=== PATIENT | male | born 1935 | race Caucasian/White ===

== ENCOUNTER 2016-09-01 | Outpatient (CLI) | payer MEDICARE, BC, OTHER | END 2016-09-01 05:04 | disposition critical access hospital (66) | CPT/HCPCS: A0425; A0427 ==

== ENCOUNTER 2016-09-01 05:14 | Emergency (ER) | payer MEDICARE, BC, OTHER ==
[2016-09-01] MEDS ORDERED: SODIUM CHLORIDE 0.9% 1,000 ML IV ONE (05:24)
[2016-09-01] MEDS ORDERED: IPRATROPIUM/ALBUTEROL 3 ML NEB INH STA (06:22)
[2016-09-01] MEDS ORDERED: IPRATROPIUM/ALBUTEROL 3 ML NEB INH ONE (07:01)
== END 2016-09-01 07:53 | disposition home or self-care (01) ==
DX: E86.0 Dehydration (principal); R42 Dizziness and giddiness; D72.829 Elevated white blood cell count, unspecified; R19.7 Diarrhea, unspecified; E11.9 Type 2 diabetes mellitus without complications; I10 Essential (primary) hypertension
CPT/HCPCS: 36415; 51701; 71020; 80053; 81001; 83690; 83735; 83880; 84100; 84443; 84484; 85025; 87275; 87276; 93005; 93010; 94640; 96360; 96361; 99284; J7620

== ENCOUNTER 2017-02-28 08:00 | Outpatient (CLI) | payer MEDICARE, BC, OTHER ==
[2017-02-28 14:09] LABS: CALCIUM 9.2 mg/dL (8.5-10.3); CREATININE 1.5 mg/dL (0.6-1.2); POTASSIUM 4.5 mmol/L (3.5-5.0)
== END 2017-02-28 08:01 | disposition home or self-care (01) ==
LOC: LAB.WCP 08:00
PROVIDERS: ATTEND Family Medicine
DX: F32.9 Major depressive disorder, single episode, unspecified (principal); I10 Essential (primary) hypertension
CPT/HCPCS: 36415; 80048

== ENCOUNTER 2017-03-05 11:54 | Outpatient (CLI) | payer MEDICARE, BC, OTHER ==
[2017-03-05 21:02] LABS: PSA FREE 0.398 ng/mL (0.16-2.81)
[2017-03-05 21:03] LABS: PSA TOTAL 2.448 ng/mL (0.000-2.000)
== END 2017-03-05 11:55 | disposition home or self-care (01) ==
LOC: LAB.WCP 11:54
PROVIDERS: ATTEND Family Medicine
DX: N40.1 Benign prostatic hyperplasia with lower urinary tract symptoms (principal)
CPT/HCPCS: 36415; 84154

== ENCOUNTER 2017-09-23 14:58 | Outpatient (CLI) | payer MEDICARE, BC, OTHER ==
--- NOTE | 2017-09-24 08:43 | MRI Report ---
EXAM: MRI CERVICAL SPINE WITHOUT CONTRAST EXAM DATE: 09/23/2017 03:36 PM. CLINICAL HISTORY: Cervical spine pain. History previously also of cervical spondylosis with myelopath y. COMPARISONS: MRI of the cervical spine 02/03/2016. TECHNIQUE: Multiplanar, multisequence T1-weighted and fluid-sensitive sequences of the cervical spine without contrast. Other: None. FINDINGS: Neurologic Structures: Stable appearance of the cervical spinal cord without evidence for developing focal cord edema or other intrinsic cervical cord lesion. Alignment: No change of alignment. Notable degenerative C7 on T1 anterolisthesis. Bone Marrow: No acute vertebral body collapse. Multilevel degenerative endplate signal changes are pr esent, progressive at C4-C5 and essentially stable at C5-C6 and to a lesser degree at C6-C7. Interspace Levels/Facets: C1-C2: No significant change, degenerative spondylosis as before, patent central canal. C2-C3: Stable prominent chronic degenerative changes. Broad-based bulge. No additional central stenos is. Foraminal stenosis is most severe on the left. C3-C4: Stable prominent chronic degenerative changes. Central stenosis as before from broad-based dis k bulge. Prominent foraminal stenosis, not significantly changed, right worse than left. C4-C5: Moderately prominent and potentially progressive degenerative disk disease now with type I deg enerative endplate signal changes. Degenerative central canal and foraminal stenosis otherwise appear s stable. Prominent broad-based disk bulge. Mild ventral cord flattening by disk, nonprogressive. C5-C6: Stable prominent chronic degenerative changes. Broad-based bulge, no additional central stenos is. Stable-appearing prominent bilateral foraminal stenosis. C6-C7: Stable degenerative changes. Foraminal stenosis is prominent bilaterally. No central stenosis or cord impingement. C7-T1: Stable degenerative changes including advanced facet arthropathy with degenerative spondylolis thesis. Stable prominent deformity and narrowing of the foramina, probably worse on the left than the right. No significant or progressive central stenosis. Musculature: Stable prominent diffuse posterior paraspinal muscle fatty atrophy. Other: No focal or acute prevertebral edema. IMPRESSION: 1. Degenerative endplate signal changes are now more evident at the C4-C5 level. 2. Advanced multilevel degenerative cervical spinal spondylosis otherwise appears stable, no evidence for progression of prominent stenosis involving multiple spinal zones at multiple levels. 3. No evidence for progressive cord impingement or developing cord signal abnormality. [facility] Referring Provider Line: [phone] SITE ID: [id number]
== END 2017-09-23 14:59 | disposition home or self-care (01) ==
LOC: DI 14:58
PROVIDERS: ATTEND Physical Medicine & Rehabilitation
DX: M54.2 Cervicalgia (principal); M47.9 Spondylosis, unspecified
CPT/HCPCS: 72141

== ENCOUNTER 2018-01-26 08:00 | Outpatient (CLI) | payer MEDICARE, BC, OTHER ==
[2018-01-26 12:53] LABS: BASOPHILS # (AUTO) 0.1 10^3/uL (0.0-0.1); BASOPHILS % (AUTO) 1.2 %; EOSINOPHILS # (AUTO) 0.2 10^3/uL (0.0-0.7); EOSINOPHILS % (AUTO) 3.5 %; HGB - HEMOGLOBIN 10.3 g/dL (14.0-18.0); LYMPHOCYTES # (AUTO) 1.1 10^3/uL (1.5-3.5); LYMPHOCYTES % (AUTO) 17.9 %; MEAN CORPUSCULAR HEMOGLOBIN 32.1 pg (27.0-31.0); MEAN CORPUSCULAR HGB CONC 34.5 g/dL (32.0-36.0); MEAN CORPUSCULAR VOLUME 92.9 fL (80.0-94.0); MEAN PLATELET VOLUME 8.6 fL (7.4-11.4); MONOCYTES # (AUTO) 0.7 10^3/uL (0.0-1.0); MONOCYTES % (AUTO) 10.6 %; NEUTROPHILS # (AUTO) 4.2 10^3/uL (1.5-6.6); NEUTROPHILS % (AUTO) 66.8 %; PLT - PLATELET COUNT 177 10^3/uL (130-450); RED BLOOD COUNT 3.22 10^6/uL (4.70-6.10); RED CELL DISTRIBUTION WIDTH 14.2 % (12.0-15.0); WHITE BLOOD COUNT 6.4 x10^3/uL (4.8-10.8)
[2018-01-26 12:57] LABS: ALBUMIN 3.7 g/dL (3.2-5.5); ALBUMIN/GLOBULIN RATIO 1.5 (1.0-2.2); ALKALINE PHOSPHATASE 80 IU/L (42-121); ALT ALANINE AMINOTRANSFERASE 13 IU/L (10-60); AST ASPARTATE AMINOTRANSFERASE 20 IU/L (10-42); BILIRUBIN,TOTAL 0.8 mg/dL (0.2-1.0); BUN - BLOOD UREA NITROGEN 33 mg/dL (6-20); CALCIUM 8.7 mg/dL (8.5-10.3); CARBON DIOXIDE - CO2 24 mmol/L (21-32); CHLORIDE 100 mmol/L (101-111); CHOL/HDL RATIO 2.2 (<5.0); CHOLESTEROL 125 mg/dL; CREATININE 1.8 mg/dL (0.6-1.2); GFR - MDRD 36 (>89); GLUCOSE 102 mg/dL (70-100); HDL CHOLESTEROL 56 mg/dL; LDL CHOLESTEROL,CALCULATED 41 mg/dL; LDL/HDL RATIO 0.7 (<3.6); SODIUM 132 mmol/L (135-145); TOTAL PROTEIN 6.1 g/dL (6.7-8.2); VLDL CHOLESTEROL 28 mg/dL
== END 2018-01-26 08:01 | disposition home or self-care (01) ==
LOC: LAB.WCP 08:00
PROVIDERS: ATTEND Family Medicine
DX: I11.0 Hypertensive heart disease with heart failure (principal); I50.9 Heart failure, unspecified; N28.9 Disorder of kidney and ureter, unspecified; E78.5 Hyperlipidemia, unspecified; R53.83 Other fatigue
CPT/HCPCS: 36415; 80053; 80061; 83721; 84443; 85025

== ENCOUNTER 2018-05-05 12:42 | Outpatient (CLI) | payer MEDICARE, BC, OTHER | END 2018-05-05 12:43 | disposition home or self-care (01) | LOC: DI 12:42 | PROVIDERS: ATTEND Family Medicine | DX: I35.0 Nonrheumatic aortic (valve) stenosis (principal); I11.0 Hypertensive heart disease with heart failure; I50.9 Heart failure, unspecified; N28.9 Disorder of kidney and ureter, unspecified | CPT/HCPCS: 93306 ==

== ENCOUNTER 2018-05-13 08:01 | Outpatient (CLI) | payer MEDICARE, BC, OTHER ==
[2018-05-13 13:50] LABS: CALCIUM 8.9 mg/dL (8.5-10.3); CREATININE 2.3 mg/dL (0.6-1.2)
== END 2018-05-13 08:02 | disposition home or self-care (01) ==
LOC: LAB.WCP 08:01
PROVIDERS: ATTEND Family Medicine
DX: N28.9 Disorder of kidney and ureter, unspecified (principal); I10 Essential (primary) hypertension
CPT/HCPCS: 36415; 80048

== ENCOUNTER 2018-08-14 08:00 | Outpatient (CLI) | payer MEDICARE, BC, OTHER ==
[2018-08-14 17:17] LABS: HGB - HEMOGLOBIN 10.5 g/dL (14.0-18.0); MEAN CORPUSCULAR HEMOGLOBIN 32.5 pg (27.0-31.0); MEAN CORPUSCULAR HGB CONC 33.3 g/dL (32.0-36.0); MEAN CORPUSCULAR VOLUME 97.6 fL (80.0-94.0); MEAN PLATELET VOLUME 8.8 fL (7.4-11.4); RED BLOOD COUNT 3.25 10^6/uL (4.70-6.10); RED CELL DISTRIBUTION WIDTH 13.4 % (12.0-15.0); WHITE BLOOD COUNT 8.8 x10^3/uL (4.8-10.8)
[2018-08-14 17:22] LABS: CALCIUM 8.9 mg/dL (8.5-10.3); CREATININE 1.8 mg/dL (0.6-1.2)
== END 2018-08-14 23:59 | disposition home or self-care (01) ==
LOC: LAB.WCP 08:00
PROVIDERS: ATTEND Family Medicine
DX: N18.3 Chronic kidney disease, stage 3 (moderate) (principal); D63.1 Anemia in chronic kidney disease
CPT/HCPCS: 36415; 80048; 81256; 85027

== ENCOUNTER 2018-09-21 09:50 | Outpatient (CLI) | payer MEDICARE, BC, OTHER ==
[2018-09-21] MEDS ORDERED: REGADENOSON 0.4 MG/5 ML SYRINGE IVP ONE ×2 (12:16→12:54)
--- NOTE | 2018-09-21 15:30 | CARDIAC PROCEDURE NOTE ---
DATE OF SERVICE: 09/21/2018 Physician: Janice Lopez MD, [facility] INDICATION: Dyspnea on exertion. CARDIAC RISK FACTORS 1. Male gender. 2. Advanced age. 3. Hypertension. 4. Hyperlipidemia. 5. Family history of heart disease. 6. Patient has known aortic stenosis. PROCEDURE: After signing informed consent, the patient underwent a Lexiscan pharmaceutical stress test with nuclear myocardial perfusion imaging. RESTING HEART RATE: 63. Peak heart rate: 79. Resting blood pressure: 152/74. Peak blood pressure: 140/70. The patient underwent Lexiscan infusion and had no symptoms with this. RESTING EKG: Normal sinus rhythm, left atrial enlargement, first degree AV block, LVH with strain pattern. EKG AT [facility]: Strain pattern continues, but there is new ST and T-wave abnormality in leads II, III and aVF. SUMMARY 1. Abnormal resting EKG. 2. Ischemic changes by EKG criteria on this pharmaceutical stress test. 3. Nuclear images reported separately. cc: DO Colby Mcmahan MD TD: 09/21/2018 15:00 MTDD
--- NOTE | 2018-09-21 15:48 | Nuclear Medicine Report ---
Reason: AORTIC VALVE STENOSIS Procedure Date: 09/21/2018 Accession Number: [id number] / [id number] Procedure: NM - Myocardial Perfusion STR/RST CPT Code: FULL RESULT: EXAM: SINGLE-ISOTOPE PHARMACOLOGICAL STRESS TEST WITH REGADENOSON. SINGLE-ISOTOPE AND ONE-DAY REST/STRESS MYOCARDIAL PERFUSION SCANS WITH TOMOGRAPHIC IMAGING, QUANTITATIVE ANALYSIS, WALL MOTION ANALYSIS AND CALCULATION OF EJECTION FRACTION. EXAM DATE: 09/21/2018 03:04 PM. CLINICAL HISTORY: AORTIC VALVE STENOSIS. COMPARISON: None. TECHNIQUE: After the intravenous administration of 10.7 mCi of Tc-99m sestamibi, a rest myocardial perfusion scan was done with tomography. Motion correction was applied when appropriate. After an appropriate delay, pharmacological stress was performed with the infusion of 0.4 mg regadenoson per protocol. According to protocol, 41.8 mCi of Tc-99m sestamibi was injected for stress myocardial perfusion scan. Motion correction was applied when appropriate. Gated tomographic images were obtained for wall motion analysis and computation of left ventricular ejection fraction. FINDINGS: There is a moderate severity fixed distal inferolateral wall defect. No convincing significant reversible perfusion defects. Computer analysis. Summed stress score 8 Summed rest score 7 Summed difference score 1 Wall motion analysis demonstrates no focal wall motion abnormality. The left ventricular end-diastolic volume is 129 cc. The left ventricular end-systolic volume is 62 cc. The left ventricular ejection fraction is calculated to be 52%. IMPRESSION: 1. Moderate severity fixed defect in the distal inferolateral wall. 2. Left ventricular ejection fraction of 52%. 3. Normal segmental and global wall motion. 4. Normal left ventricular cavity size, no change with stress. 5. Based on computer analysis, mildly abnormal study with no ischemia. [facility]
== END 2018-09-21 09:51 | disposition home or self-care (01) ==
LOC: DI 09:50
PROVIDERS: ATTEND Internal Medicine Cardiovascular Disease
DX: I35.0 Nonrheumatic aortic (valve) stenosis (principal); I10 Essential (primary) hypertension; R94.31 Abnormal electrocardiogram [ECG] [EKG]; E78.5 Hyperlipidemia, unspecified; Z82.49 Family history of ischemic heart disease and other diseases of the circulatory system
CPT/HCPCS: 78452; 93017; A9500; J2785

== ENCOUNTER 2018-12-25 15:49 | Outpatient (CLI) | payer MEDICARE, BC, OTHER ==
--- NOTE | 2018-12-25 16:25 | XRAY Report ---
Reason: DYSPNEA Procedure Date: 12/25/2018 Accession Number: [id number] / [id number] Procedure: WCP - Chest 2 View X-Ray CPT Code: 93486 FULL RESULT: EXAM: CHEST RADIOGRAPHY EXAM DATE: 12/25/2018 04:09 PM. CLINICAL HISTORY: Cough. COMPARISON: CHEST 2 VIEW PA/LAT 09/01/2016 5:46 AM. TECHNIQUE: 2 views. FINDINGS: Lungs/Pleura: No focal consolidation, effusions or edema evident. Moderate perihilar and lower lobe bronchial wall thickening present increased since prior exam. Lung volumes are mildly diminished as before. Mediastinum: Mild to moderate left heart enlargement as before. Other: 1. Increasing IMPRESSION: 1. Perihilar bronchial wall thickening extending into the lower lobes which could reflect bronchitis, reactive airways disease or viral pneumonia. 2. No focal consolidation. 3. Mild to moderate left heart enlargement. [facility]
== END 2018-12-25 15:50 | disposition home or self-care (01) ==
LOC: DI.WCP 15:49
PROVIDERS: ATTEND Family Medicine
DX: R06.00 Dyspnea, unspecified (principal); I51.7 Cardiomegaly
CPT/HCPCS: 71046

== ENCOUNTER 2019-01-11 08:00 | Outpatient (CLI) | payer MEDICARE, BC, OTHER ==
[2019-01-11 12:27] LABS: ALBUMIN 3.7 g/dL (3.2-5.5); ALBUMIN/GLOBULIN RATIO 1.9 (1.0-2.2); BILIRUBIN,TOTAL 1.1 mg/dL (0.2-1.0); CALCIUM 8.8 mg/dL (8.5-10.3); CREATININE 1.7 mg/dL (0.6-1.2); TOTAL PROTEIN 5.6 g/dL (6.7-8.2)
[2019-01-11 12:33] LABS: BASOPHILS # (AUTO) 0.1 10^3/uL (0.0-0.1); BASOPHILS % (AUTO) 0.5 %; EOSINOPHILS # (AUTO) 0.1 10^3/uL (0.0-0.7); HGB - HEMOGLOBIN 10.8 g/dL (14.0-18.0); LYMPHOCYTES # (AUTO) 1.1 10^3/uL (1.5-3.5); LYMPHOCYTES % (AUTO) 9.7 %; MEAN CORPUSCULAR HEMOGLOBIN 31.3 pg (27.0-31.0); MEAN CORPUSCULAR HGB CONC 34.1 g/dL (32.0-36.0); MEAN PLATELET VOLUME 8.1 fL (7.4-11.4); MONOCYTES # (AUTO) 1.2 10^3/uL (0.0-1.0); MONOCYTES % (AUTO) 10.3 %; NEUTROPHILS % (AUTO) 78.5 %; PLT - PLATELET COUNT 167 10^3/uL (130-450); RED BLOOD COUNT 3.46 10^6/uL (4.70-6.10); RED CELL DISTRIBUTION WIDTH 13.6 % (12.0-15.0); WHITE BLOOD COUNT 11.4 x10^3/uL (4.8-10.8)
== END 2019-01-11 08:01 | disposition home or self-care (01) ==
LOC: LAB.WCP 08:00
PROVIDERS: ATTEND Family Medicine
DX: I27.20 Pulmonary hypertension, unspecified (principal); I50.30 Unspecified diastolic (congestive) heart failure; I25.10 Atherosclerotic heart disease of native coronary artery without angina pectoris; R06.09 Other forms of dyspnea
CPT/HCPCS: 36415; 80053; 83880; 84443; 85025

== ENCOUNTER 2019-02-08 07:45 | Outpatient (CLI) | payer MEDICARE, BC, OTHER ==
[2019-02-08 15:48] LABS: ALBUMIN 3.4 g/dL (3.2-5.5); ALBUMIN/GLOBULIN RATIO 1.5 (1.0-2.2); BILIRUBIN,TOTAL 0.9 mg/dL (0.2-1.0); CREATININE 2.1 mg/dL (0.6-1.2); TOTAL PROTEIN 5.7 g/dL (6.7-8.2)
[2019-02-08 15:57] LABS: BASOPHILS # (AUTO) 0.1 10^3/uL (0.0-0.1); EOSINOPHILS # (AUTO) 0.2 10^3/uL (0.0-0.7); EOSINOPHILS % (AUTO) 3.2 %; HGB - HEMOGLOBIN 9.7 g/dL (14.0-18.0); LYMPHOCYTES % (AUTO) 14.1 %; MEAN CORPUSCULAR HEMOGLOBIN 31.5 pg (27.0-31.0); MEAN CORPUSCULAR HGB CONC 33.9 g/dL (32.0-36.0); MEAN CORPUSCULAR VOLUME 92.9 fL (80.0-94.0); MEAN PLATELET VOLUME 7.9 fL (7.4-11.4); MONOCYTES # (AUTO) 0.9 10^3/uL (0.0-1.0); MONOCYTES % (AUTO) 13.2 %; NEUTROPHILS # (AUTO) 4.6 10^3/uL (1.5-6.6); NEUTROPHILS % (AUTO) 68.5 %; PLT - PLATELET COUNT 229 10^3/uL (130-450); RED BLOOD COUNT 3.07 10^6/uL (4.70-6.10); RED CELL DISTRIBUTION WIDTH 14.2 % (12.0-15.0); WHITE BLOOD COUNT 6.8 x10^3/uL (4.8-10.8)
== END 2019-02-08 07:46 | disposition home or self-care (01) ==
LOC: LAB.WCP 07:45
PROVIDERS: ATTEND Family Medicine
DX: R06.00 Dyspnea, unspecified (principal); I27.20 Pulmonary hypertension, unspecified; I50.30 Unspecified diastolic (congestive) heart failure
CPT/HCPCS: 36415; 80053; 83880; 85025

== ENCOUNTER 2019-02-24 08:00 | Outpatient (CLI) | payer MEDICARE, BC, OTHER ==
[2019-02-24 12:27] LABS: CALCIUM 8.9 mg/dL (8.5-10.3); CREATININE 2.3 mg/dL (0.6-1.2)
== END 2019-02-24 08:01 | disposition home or self-care (01) ==
LOC: LAB.WCP 08:00
PROVIDERS: ATTEND Family Medicine
DX: N18.3 Chronic kidney disease, stage 3 (moderate) (principal)
CPT/HCPCS: 36415; 80048

== ENCOUNTER 2019-06-03 20:19 | Outpatient (CLI) | payer MEDICARE, BC, OTHER | END 2019-06-03 20:20 | disposition short-term general hospital (02) | LOC: EMS 20:19 | PROVIDERS: ATTEND Surgery | DX: M79.602 Pain in left arm (principal); R11.0 Nausea | CPT/HCPCS: A0425; A0427 ==

== ENCOUNTER 2020-04-12 08:00 | Outpatient (CLI) | payer MEDICARE, BC, OTHER ==
[2020-04-12 14:34] LABS: BASOPHILS # (AUTO) 0.1 10^3/uL (0.0-0.1); BASOPHILS % (AUTO) 0.6 %; EOSINOPHILS # (AUTO) 0.9 10^3/uL (0.0-0.7); EOSINOPHILS % (AUTO) 9.2 %; HGB - HEMOGLOBIN 8.1 g/dL (14.0-18.0); LYMPHOCYTES # (AUTO) 0.6 10^3/uL (1.5-3.5); LYMPHOCYTES % (AUTO) 6.7 %; MEAN CORPUSCULAR HEMOGLOBIN 31.2 pg (27.0-31.0); MEAN CORPUSCULAR HGB CONC 32.5 g/dL (32.0-36.0); MEAN CORPUSCULAR VOLUME 95.8 fL (80.0-94.0); MEAN PLATELET VOLUME 10.7 fL (7.4-11.4); MONOCYTES % (AUTO) 10.4 %; NEUTROPHILS # (AUTO) 6.9 10^3/uL (1.5-6.6); NEUTROPHILS % (AUTO) 72.7 %; PLT - PLATELET COUNT 190 10^3/uL (130-450); RED CELL DISTRIBUTION WIDTH 13.8 % (12.0-15.0); WHITE BLOOD COUNT 9.5 x10^3/uL (4.8-10.8)
[2020-04-12 14:43] LABS: ALBUMIN 3.6 g/dL (3.2-5.5); ALBUMIN/GLOBULIN RATIO 1.6 (1.0-2.2); BILIRUBIN,TOTAL 0.8 mg/dL (0.2-1.0); CREATININE 2.5 mg/dL (0.6-1.2); TOTAL PROTEIN 5.9 g/dL (6.7-8.2)
[2020-04-12 15:10] LABS: FOLATE 8.21 ng/mL (5.90 - >24.8)
== END 2020-04-12 23:59 | disposition home or self-care (01) ==
LOC: LAB.R 08:00
PROVIDERS: ATTEND Nurse Practitioner Adult Health
DX: N18.9 Chronic kidney disease, unspecified (principal); D63.1 Anemia in chronic kidney disease; Z79.899 Other long term (current) drug therapy
CPT/HCPCS: 80053; 82607; 82746; 85025

== ENCOUNTER 2020-04-12 10:00 | Outpatient (CLI) | payer MEDICARE, BC, OTHER ==
--- NOTE | 2020-04-12 18:04 | CONSULTATION NOTE ---
Palliative Care Follow Up - Referral Referring Provider: Dr. Etienne Urrutia Time of Visit: 06-04 Referral setting: Home Referral Reason: CKD IV/anemia/chronic pain/wheezing - Information Sources Records reviewed: Previous records reviewed History/Review of Systems obtained from: Patient, Family ( Judy) Exam limitations: Clinical condition (patient with mod STM deficits) - History of Present Illness Update Brief HPI Update: This is a feisty 84-year-old gentleman who has multiple comorbidities disease and presents with moderate to high symptom burden. Patient has had ongoing and fluctuating functional and cognitive decline, has become mostly homebound, and presents today with appears episode where he aspirated last night. He is continuing to cough, he has rhonchi anteriorly clear somewhat with cough, expiratory wheezes throughout which improved with albuteral inhaler, no temp or crackles, reports this is happened before. confirms this, reports he does have baseline ongoing wheezing, though does not acknowledge it secondary to his dementia. Patient believes he choked on his pills. He remains quite frustrated and agitated about it. Patient was also trying to titrate off his oxycodone, he has long-term persistent upper arm and shoulder pain, as well as longstanding back pain. Shoulder and arm pain are thought to be attributed to cervical spondylosis with myelopathy at the C4-5 level, he has not tolerated his titration off his oxycodone, has decreased his functionality, and increased his overall discomfort. We did discuss in the context of his goals of care, or which are to remain functional, independent as possible, and to improve his quality of life we could continue to work with opioids, given the setting of his CKD and CAD, would be safe for than NSAIDs. He does get some relief with acetaminophen, and was willing to trial [id number] dosing versus transitioning back to OxyContin. Labs were drawn for anemia, worsening CKD, as well as B12 and folate. Patient did have iron studies that within normal range in January, as well as a normal TSH. Patient's medical history all includes aortic stenosis, pulmonary hypertension, diagnosis of CHF, COPD, asthma, emphysema, tremors, GERD, BPH, nocturia, scoliosis, and history of warts/actinic keratosis. Social History - Living Situation Living arrangement: At home Living Situation: With spouse/s.o. Support System: Patient lives with his anderson Judy, she is still active and in good health. 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 They do have 2 children a son and a daughter, he does like to avidly read, watch TV, he is on a 1 level area of the house. He is quite sedentary, and gets easily frustrated particular around his cognitive deficits. Medications/Allergies - Medications Home Medications: Ambulatory Orders Medication Instructions Recorded Confirmed Acetaminophen/Cod 300/30 [Tylenol 1 each PO Q8HR PRN 01/13/13 04/13/20 #3] Losartan [Cozaar] 100 mg PO DAILY 01/13/13 04/13/20 Tamsulosin [Flomax] 0.4 mg PO BID 01/13/13 04/13/20 Albuterol Sulf [Ventolin Hfa 2 puffs IH BID PRN 09/01/16 04/13/20 Inhaler] Ascorbic Acid [Vitamin C] 500 mg PO DAILY 09/01/16 04/13/20 cloNIDine [Catapres] 1 tab PO BID 09/01/16 04/13/20 Carvedilol [Coreg] 25 mg PO BID 04/01/20 04/13/20 Cholecalciferol (Vitamin D3) 1,000 mg PO DAILY 04/01/20 04/13/20 [Vitamin D3] Famotidine 20 mg PO DAILY 04/01/20 04/13/20 Furosemide 40 mg PO DAILY 04/01/20 04/13/20 Isosorbide Mononitrate ER [Imdur] 30 mg PO DAILY 04/01/20 04/13/20 Loratadine [Claritin] 10 mg PO DAILY 04/01/20 04/13/20 Oxycodone HCl 5 mg PO TID MDD one tab in night 04/01/20 04/13/2012/16 Rosuvastatin Calcium 10 mg PO DAILY 04/01/20 04/13/20 Senna [Senokot] 8.6 mg PO BID PRN 04/01/20 04/13/20 polyethylene glycoL 3350 [Miralax] 8.6 mg PO DAILY MDD titrate as 04/01/2004/13 needed - Allergies Allergies/Adverse Reactions: Allergies Allergy/AdvReac Type Severity Reaction Status Date / Time lisinopril Allergy Severe Edema Verified 01/08/17 05:18 Sulfa (Sulfonamide Allergy Severe Respiratory Verified 09/01/16 05:18 Antibiotics) tramadol Allergy Intermediate Hives Verified 09/01/16 05:18 Review of Systems - Constitutional Constitutional: reports: Fatigue (worsening), Weakness, Weight stable. denies: Fever, Chills, Malaise, Night sweats - Ears, Nose & Throat Ears, Nose & Throat: reports: Hearing loss, Hearing aids, Nasal congestion, Dry mouth, Other (wondering if needs ears cleaned; will bring otoscope next visit) - Cardiovascular Cardiovascular: reports: Irregular heart rate, Exertional dyspnea, Decr. exercise tolerance. denies: Chest pain - Respiratory Respiratory: reports: Cough (aspirated last night with taking pills), Wheezing (since last night exacerbated; reports fluctuates at baseline), SOB with exertion. denies: SOB at rest - Gastrointestinal Gastrointestinal: reports: Reflux/heartburn, Good appetite. denies: Constipation (managing better with bowel med), Nausea - Genitourinary Genitourinary: reports: Frequency, Urgency - Musculoskeletal Musculoskeletal: reports: Muscle pain, Back pain, Muscle aches, Stiffness, Limited range of motion, Muscle weakness, Assistive devices (uses walker) - Integumentary Integumentary: reports: Dryness, Other (c/o warts right santiago) - Neurological Neurological: reports: General weakness, Numbness, Memory problems (STM;), Abnormal gait - Psychiatric Psychiatric: reports: Depression, Anxiety - Hematologic/Lymphatic Hematologic/Lymphatic: reports: Anemia. denies: Recurrent infections - All Other Systems All Other Systems: reports: Reviewed and negative Physical Exam - Vital Signs Temperature: 96.7 C Pulse Rate: 60 Respiratory Rate: 18 O2 Saturation: 99 (ra @ rest) Blood Pressure: 162/80 - Physical Exam General Appearance: positive: No acute distress, Alert Eyes Bilateral: positive: Normal inspection ENT: positive: No signs of dehydration Neck: positive: Trachea midline, Stiff neck (limited ROM). negative: Lymphadenopathy (R), Lymphadenopathy (L) Cardiovascular: positive: Regular rate & rhythm Respiratory: positive: No respiratory distress, Diminished in bases, Wheezes (improved with use of pro air), Rhonchi (in anterior upper chest). negative: Rales Abdomen: positive: Non-tender, Soft, Nml bowel sounds, Other (rounded) Skin: positive: Pallor, Dryness, Other (two small warts right hand) Extremities: positive: No pedal edema Neurologic/Psychiatric: positive: Oriented x3, Mood/affect nml, Weakness, Flat affect Palliative Care - POLST Patient has POLST: No Pain: Pain worsening, Comment (patient had trialed cutting down oxycodone with worsening pain and function currently using oxycodone AM and dinner; t#3 during mid day; tylenol mid morning) Tiredness/Fatigue: Moderate (4-6) Drowsiness/Sedation: Moderate (4-6) (c/o sleeping during the day) Nausea: None Anorexia: Mild (1-3) Dyspnea: Moderate (4-6) (with activity) Depression: Mild (1-3) Anxiety: Mild (1-3) Feelings of wellbeing/Perceived Quality of Life: Fair, Acceptable, Worsening Sleep: Sleeps poorly (up frequently to void) Constipation: Yes, Opoid induced, Managed Performance Status: Patient is quite sedentary, with his increase in pain he was even less functional, does better with supplemental pain medicine on board. Patient does spend most of his time sleeping, reading, and watching TV. His does assist him with ADLs, no recent falls. They are not sure if he can navigate the stairs at this point in time, they are living on one level. - Palliative Care Discussion: Patient and did not follow-up on conversation regarding advanced care directives. Given he is not feeling well today, and quite irritable, will delay 1 more visit. Patient though at high risk for sequela of a fall or hospitalization related to aspiration or ongoing decline. Patient is able to engage in conversation, but easily gets frustrated at nuances particular around medical care. His takes good notes, and is asking appropriate questions. Results - Lab Results Lab results reviewed: Yes Lab and Imaging Results: CBC,CMP, Vitamin B12/Folate drawn from right antecubital; delivered to lab Impression and Recommendations - Palliative Care Impression: This is a 84-year-old gentleman who presents with worsening fatigue, functional decline, mild cognitive decline, and multiple core mobilities. Concern today regarding patient has symptoms of aspiration, with increased wheezing, residual cough, and high risk for aspiration pneumonia. Patient continues with acute on chronic pain, will continue his opioids after weighing benefits and burdens and trialing at tapering off. Palliative care to provide support regarding pain and symptom management, advanced care planning, and anticipatory guidance as well as coordination of care. Recommendations/Counseling Done: 1. Aspiration. Patient instructed to use inhaler, did improve wheezing. Also helped him clear anteriorly with his cough. Counseled to do albuterol 2 puffs every 4-6 hours while awake over the next 2 to 3 days. Counseling provided regarding signs and symptoms of aspiration pneumonia and when to contact healthcare provider/ED visit. Goals have not been defined if patient would accept hospitalization at this point in time, will need to continue to weigh benefits and burdens. 2. Acute on chronic pain. Patient did not tolerate taper well, patient is mixing opioids Tylenol 3 and oxycodone, counseling provided regarding recommendation of oxycodone, supplemented with acetaminophen. I suspect it is the acetaminophen is giving him relief. Instructed to take oxycodone 5 mg with 1 500 mg of acetaminophen 3 times a day, and when Miesha available at night if gets up and is uncomfortable. Patient may need to go back to long-acting, will continue to monitor. 3. Constipation. Patient is using MiraLAX, has been instructed on senna, patient reports bowels are moving on a regular basis. Counseling again provided regarding goal for daily soft BM. 4. Fatigue. This is multifactorial, patient is up frequently at night, he does present with worsening kidney function and anemia, iron studies were within normal limits done in January as well as TSH. Addendum. Patient's kidney functions only slightly worse, anemia slightly lower, B12 was deficit. Given option of oral versus IM, will let me know. 5. Hypertension. Patient remains hypertensive, requested they start doing daily blood pressures to get a better sense of trends, patient has not had el evated blood pressure for a while, may be related to his worsening kidney function. 6. Advanced care planning. Patient is quite frail, at high risk for sequela of fall, aspiration, and continued decline relating to his care kidney function. Did discuss with given patient's worsening labs, would he want further work-up for specialty care. She reports he has had offers regarding this, has declined at this point in time. We will continue to explore patient's wishes within the limits of his cognition, is recognizing his frailty and declining quality of life. Lianne Index; This looks at community dwelling adults age 65 and older, and all cause 1 year mortality. Patient scores a 10, greater than 9 is a 46.8% chance of all year when mortality. Risk calculators cannot predict the future for anyone individual, but gives an estimate of how many people with similar risk factors will live and but they can identify who will live in who will . Time Spent: 60 minutes with greater than 50% of this done in counseling regarding pain and symptom management, anticipatory guidance, instruction regarding recent aspiration, labs drawn and delivered [facility], and follow-up.
== END 2020-04-12 10:01 | disposition home or self-care (01) ==
LOC: PC 10:00
PROVIDERS: ATTEND Nurse Practitioner Adult Health
DX: Z51.5 Encounter for palliative care (principal); R06.2 Wheezing; R05 Cough; G89.29 Other chronic pain; E53.8 Deficiency of other specified B group vitamins; D64.9 Anemia, unspecified; R53.1 Weakness; I13.0 Hypertensive heart and chronic kidney disease with heart failure and stage 1 through stage 4 chronic kidney disease, or unspecified chronic kidney disease; N18.9 Chronic kidney disease, unspecified; I25.10 Atherosclerotic heart disease of native coronary artery without angina pectoris; I50.9 Heart failure, unspecified; J44.9 Chronic obstructive pulmonary disease, unspecified; K59.00 Constipation, unspecified; M47.12 Other spondylosis with myelopathy, cervical region; F03.90 Unspecified dementia, unspecified severity, without behavioral disturbance, psychotic disturbance, mood disturbance, and anxiety; Z79.899 Other long term (current) drug therapy; Z79.891 Long term (current) use of opiate analgesic
CPT/HCPCS: 99350

== ENCOUNTER 2020-05-03 10:00 | Outpatient (CLI) | payer MEDICARE, BC, OTHER ==
--- NOTE | 2020-05-03 16:15 | CONSULTATION NOTE ---
Palliative Care Follow Up - Referral Referring Provider: Dr. Etienne Urrutia Time of Visit: 06-04 Referral setting: Home Referral Reason: CKD IV/Chronic Pain/Dementia - Information Sources Records reviewed: Previous records reviewed History/Review of Systems obtained from: Patient, Family ( PAT) Exam limitations: Clinical condition (patient with STM deficits; poor insight; irritablility) - History of Present Illness Update Brief HPI Update: This is a feisty 84-year-old gentleman who has multiple comorbidities, moderate to high symptom burden, ongoing functional and cognitive decline, and presents mostly as homebound. 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 He also has worsening anemia, most likely attributed to his CKD, though cannot rule out blood loss, with a hemoglobin of 8.1 and hematocrit of 24.9. Last visit, patient had aspirated prior to my visit, though he does not recall this. He does report intermittent wheezing, he does use his inhaler intermittently, had use it regularly after I last left, now uses it only "as needed". Patient has ongoing chronic pain, long-term persistent in his upper left shoulder and arm, as well as longstanding back pain. 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 He is quite irritated regarding any conversation about managing his pain and pain medications, he had been previously on OxyContin, and now insists on just taking his oxycodone 5 mg twice a day, but does not feel it is helpful. He does use intermittent Tylenol 3 and intermittent Tylenol, without much pattern or reasoning. He reports with any kind of standing, his pain exacerbates severely, and thus spends most of his time sitting and reading, or in his chair. Patient also is complaining of increased trouble emptying his bladder, reports it takes about 10 minutes to sitting. He is on tamsulosin 0.4 twice daily, has had attempted procedures in the past without improvement. He is complaining of significant fatigue, some decline in his appetite, his weight is at 172, it had been previously at 190 though he could not give me the time. He feels he could do better also with lower weight. His shares he is more irritable, easily agitated, and they are arguing quite frequently mostly related to his memory and agitation. She does admit his dementia has worsened significantly over the last several weeks to months. Patient's past medical history includes aortic stenosis, pulmonary hypertension, CHF, COPD, asthma, emphysema, tremors, GERD, BPH, nocturia, scoliosis, history of warts/actinic keratosis. Social History - Living Situation Living arrangement: At home Living Situation: With spouse/s.o. Support System: Patient lives with his anderson Judy, she is still active but is presenting with some significant increased caregiver fatigue. 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 He reports he knows just enough to be dangerous, they do have 2 children, son and daughter. He is an avid reader, watches TV, he stays on the 1 level of the house. He is quite sedentary, gets easily frustrated particular around his cognitive and physical deficits. Medications/Allergies - Medications Home Medications: Ambulatory Orders Medication Instructions Recorded Confirmed Acetaminophen/Cod 300/30 [Tylenol 1 each PO Q8HR PRN 01/13/13 05/03/20 #3] Losartan [Cozaar] 100 mg PO DAILY 01/13/13 05/03/20 Tamsulosin [Flomax] 0.4 mg PO BID 01/13/13 05/03/20 Albuterol Sulf [Ventolin Hfa 2 puffs IH BID PRN 09/01/16 05/03/20 Inhaler] Ascorbic Acid [Vitamin C] 500 mg PO DAILY 09/01/16 05/03/20 cloNIDine [Catapres] 1 tab PO BID 09/01/16 05/03/20 Carvedilol [Coreg] 25 mg PO BID 04/01/20 05/03/20 Cholecalciferol (Vitamin D3) 1,000 mg PO DAILY 04/01/20 05/03/20 [Vitamin D3] Famotidine 20 mg PO DAILY 04/01/20 05/03/20 Furosemide 40 mg PO DAILY 04/01/20 05/03/20 Isosorbide Mononitrate ER [Imdur] 30 mg PO DAILY 04/01/20 05/03/20 Loratadine [Claritin] 10 mg PO DAILY 04/01/20 05/03/20 Oxycodone HCl 5 mg PO TID MDD one tab in night 04/01/20 05/03/2012/16 Rosuvastatin Calcium 10 mg PO DAILY 04/01/20 05/03/20 Senna [Senokot] 8.6 mg PO BID PRN 04/01/20 05/03/20 polyethylene glycoL 3350 [Miralax] 8.6 mg PO DAILY MDD titrate as 04/01/20 05/03/20 needed Cyanocobalamin (Vitamin B-12) 1,000 mcg PO DAILY 05/03/20 05/03/20 [Vitamin B-12 (1000 mcg sublingual)] - Allergies Allergies/Adverse Reactions: Allergies Allergy/AdvReac Type Severity Reaction Status Date / Time lisinopril Allergy Severe Edema Verified 09/01/16 05:18 Sulfa (Sulfonamide Allergy Severe Respiratory Verified 09/01/16 05:18 Antibiotics) tramadol Allergy Intermediate Hives Verified 09/01/16 05:18 Review of Systems - Constitutional Constitutional: reports: Fatigue (worsening), Weight loss (172 unclear baseline). denies: Fever - Eyes Eyes: reports: Vision loss, Corrective lenses - Ears, Nose & Throat Ears, Nose & Throat: reports: Hearing loss, Hearing aids - Cardiovascular Cardiovascular: reports: Edema, Decr. exercise tolerance - Respiratory Respiratory: reports: Cough, Wheezing, SOB with exertion. denies: SOB at rest - Gastrointestinal Gastrointestinal: reports: Constipation (intermittent), Reflux/heartburn, Good appetite - Genitourinary Genitourinary: reports: Frequency, Nocturia - Musculoskeletal Musculoskeletal: reports: Back pain, Muscle aches, Stiffness, Limited range of motion, Muscle weakness, Joint pain, Assistive devices (uses walker) - Integumentary Integumentary: reports: Dryness - Neurological Neurological: reports: General weakness, Numbness, Abnormal gait - Psychiatric Psychiatric: reports: Depression, Aggitation. denies: Anxiety - Hematologic/Lymphatic Hematologic/Lymphatic: reports: Anemia (8.1 worsening). denies: Recurrent infections - All Other Systems All Other Systems: reports: Reviewed and negative Physical Exam - Vital Signs Temperature: 96.1 C Pulse Rate: 62 Respiratory Rate: 18 O2 Saturation: 96 (ra @ rest) Blood Pressure: 122/58 - Physical Exam General Appearance: positive: Alert Eyes Bilateral: positive: Normal inspection ENT: positive: No signs of dehydration, Other (ears with out cerumen) Neck: positive: Trachea midline Cardiovascular: positive: Regular rate & rhythm Respiratory: positive: No respiratory distress, Diminished in bases. negative: Wheezes, Rales, Rhonchi Abdomen: positive: Non-tender, Soft Skin: positive: Pallor, Dryness Extremities: positive: Pedal edema (1+) Neurologic/Psychiatric: positive: Disoriented to time, Weakness, Depressed mood/affect, Flat affect Palliative Care - POLST Patient has POLST: No Pain: Pain worsening, Comment (Patient taking oxycodone 5 mg twice daily, supplementing with plain Tylenol a, occasional Tylenol 3. Patient quite agitated when asked further about pain or pain management, has very poor recall with his STM.) Tiredness/Fatigue: Moderate (4-6) Drowsiness/Sedation: Moderate (4-6) (easily drifts off; this is patients baseline) Nausea: None Anorexia: None Dyspnea: Moderate (4-6) Depression: Moderate (4-6) (hates getting older) Anxiety: Mild (1-3) Feelings of wellbeing/Perceived Quality of Life: Poor, Worsening Sleep: Sleeps poorly (related to nocturia and pain) Constipation: Yes, Opoid induced, Intermittent constipation Performance Status: Patient very sedentary, is limited by pain and by fatigue. Patient is fairly independent in ADLs, though does need some assistance from . I would put him at a PPS of 60% - Palliative Care Discussion: Patient's cognitive deficits are little bit more pronounced and noticeable as it is gotten to set report and no patient better. He is very distressed with just his overall decline, and getting older. He does find it quite limiting and frustrating. He did have their son and his visit over Labor Day, and appropriately social distance. Patient is easily frustrated and irritated with any kind of perceived challenge in our conversation particular around memory, continue to work on building rapport. Did meet separately with , she does note his increasing irritability, increased difficulty with his memory, causing more arguments between the two of them. We did discuss in the context of his fragility, I did introduce concerns regarding patient's poor prognosis, that he does have a 45% chance of one year mortality, and how to interpret risk profiles. I did share my concern regarding his worsening labs, his functional and cognitive decline, and expected continued worsening behaviors with progressive dementia. She reports she did find their advance care planning documents, they are very much focused on quality of life not quantity, and feels she could interpret this into a POLST. Counseling provided regarding the role of the POLST as a tool to help direct the healthcare system, particularly EMS. He is at high risk for sequela and continued falls and complications, would be nice to have that in place. She does feel like she understands this better, and will make an attempt to redress this, feels like if she introduces this slowly, that she feels competent in having this conversation. I did encourage her though to also reach out to her kids, to share concerns regarding patient's worsening prognosis, so that they would not be surprised. She does find it quite difficult given the restrictions of the pandemic, her daughter lives in [place] and does not want to have her feel like she needs to come out immediately. Did discuss will defer to her decision making, but always encourage to allow family members to make their own decisions. Results - Lab Results Lab results reviewed: Yes Impression and Recommendations - Palliative Care Impression: This is a feisty 84-year-old gentleman, who continues with worsening fatigue, functional decline, cognitive decline, and multiple co-morbidities. Patient continues with worsening CKD 4 and anemia, confirmed by labs. His pain remains poorly controlled, though this has more to do with his adherence and opinions, he is quite sedentary, is sleeping more, and presents with failure to thrive. Palliative care continue provide support regarding pain and symptom management, advanced care planning, anticipatory guidance, as well as coordination of care. Recommendations/Counseling Done: 1. COPD. Patient did not develop any further symptoms from his aspiration, continues with intermittent wheezing. He does have his inhaler which is effective, but does not use this on a regular basis. reports it does fluctuate, patient has poor recall, patient does have intermittent choking we will continue to monitor. 2. Acute on chronic pain. Patient was quite resistant to using oxycodone 5 mg with acetaminophen 3 times a day, at this point is defaulted back to oxycodone 5 mg twice daily, with intermittent Tylenol 3 and Tylenol. Patient does not want to make any changes, and gets quite irritated when challenged, will continue to build rapport and readdress at next visit. Patient does have adequate pain medications available, is aware that patient can use more, did discuss using 2 at a time, to see if he felt better relief, as he is quite limited by his pain. 3. Constipation. Patient is using intermittent MiraLAX, reports he is moving on a regular basis. Counseling has been provided, patient continues to make his own choices regarding this, but reports no further worsening. does report he does use the MiraLAX and will continue to monitor. 4. Fatigue. This is multifactorial, patient also has worsening fatigue anemia. Patient would not want further work-up at this point in time, we did add vitamin B-12, he wanted oral versus shots. Agreed would continue to monitor labs every 3 months, to help with anticipatory guidance. Patient would not accept dialysis either. 5. Hypertension. Patient had not been taking daily blood pressures, they had forgotten. Today he does not present with elevated blood pressure, though has had this in the past. He is fairly maxed out on multiple medications, and not very open to adding more pills. He does feel overwhelmed as it is. They have agreed though to take daily blood pressures, will follow-up in a few weeks to see if trending upward. 6. BPH. Patient did actually ask me about his worsening symptoms of BPH, does report is problematic, particularly with nocturia. We did discuss could add to to his regimen, again he is not keen on adding more medications. He will consider it though, if becomes more problematic. Patient has not had a history of recurrent UTIs, but will continue to monitor. 7. Advanced care planning. Patient is quite frail, at high risk for sequela of a fall, aspiration, and continued decline relating to his kidney function. Patient does have limits with in his cognition, is recognizing his frailty and declining quality of life. She did find her advance care documents, which do reflect on focusing on quality and not extending suffering. Counseling provided regarding the POLST, his Lianne index numbers, as well as some anticipatory guidance in the context of his worsening dementia. She will get a copy for [facility] of his advance care planning documents, and we will revisit the POLST with his next visit. 8.History of cerumen impaction. Patient's ears examined, they are clear today, patient does Debrox on a regular basis, reassured looks fine today, had brought equipment out if needed. 9. Lower extremity edema. Patient does have 1+, we did discuss the use of elevation, and support hose, patient does not like compression hose because of difficulty getting on and off, recommended diabetic support hose as they are easier to manage. Patient's primary care provider Dr. Urrutia is retiring, did discuss transition to Zhanna WILDER as sees her as well. She reports she did talk to Zhanna, who is in agreement. They do need to order new medications, will reach out to [facility] to make sure records reflect accordingly. Palliative care will continue to see patient in the home setting, and work with Zhanna WILDER as primary, patient does have difficulty getting out of the home, would be difficult to establish care unless some urgent problem comes up. Patient would also like a flu shot, follow-up for homebound patients, will be available end of April of May, palliative care can provide and deliver shot. Time Spent: 60 minutes with greater than 50% of this done in counseling regarding pain and symptom management, anticipatory guidance, advanced care planning, and coordination of care.
== END 2020-05-03 10:01 | disposition home or self-care (01) ==
LOC: PC 10:00
PROVIDERS: ATTEND Nurse Practitioner Adult Health
DX: Z51.5 Encounter for palliative care (principal); J44.9 Chronic obstructive pulmonary disease, unspecified; M25.512 Pain in left shoulder; M54.9 Dorsalgia, unspecified; G89.29 Other chronic pain; K59.03 Drug induced constipation; R53.83 Other fatigue; D64.9 Anemia, unspecified; I12.9 Hypertensive chronic kidney disease with stage 1 through stage 4 chronic kidney disease, or unspecified chronic kidney disease; N18.4 Chronic kidney disease, stage 4 (severe); N40.1 Benign prostatic hyperplasia with lower urinary tract symptoms; R35.1 Nocturia; R60.0 Localized edema; R62.7 Adult failure to thrive; R41.81 Age-related cognitive decline; Z91.81 History of falling
CPT/HCPCS: 99350

== ENCOUNTER 2020-06-07 10:00 | Outpatient (CLI) | payer MEDICARE, BC, OTHER ==
--- NOTE | 2020-06-07 13:41 | CONSULTATION NOTE ---
Palliative Care Follow Up - Referral Referring Provider: Dr. Etienne Urrutia Time of Visit: 06-04 Referral setting: Home Referral Reason: Chronic Pain/CKD/Dementia - Information Sources Records reviewed: Previous records reviewed History/Review of Systems obtained from: Patient, Family ( Pat present) Exam limitations: Clinical condition (patient with worsening STM deficits) - History of Present Illness Update Brief HPI Update: This is a feisty 84-year-old gentleman who has multiple core morbidities and presents with ongoing moderate to high symptom burden. He has ongoing and fluctuating functional and cognitive decline, has been homebound, and has had worsening pain. Patient reports it is mostly located across his upper shoulders into his deltoids, right greater than left, also significant back pain, worsening with standing and ambulation, he is quite sedentary, and walks only short distances. 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 Has been using scheduled oxycodone 5 mg BID with occasional dose in day/nigh, but wears off fairly quickly, is willing to consider titration back to his long-acting OxyContin. Given patient's CKD and CAD, patient is not appropriate for NSAIDs, patient does have worsening anemia, CKD, and up to this point has declined any further work-up. does understand the seriousness of his illness, patient himself though has significant short-term memory deficits, and defers often to his for answers or historical questions. Patient unable to get out, is quite sedentary. is worried about pending appointments with seat joiner, had requested echo and follow-up appointment. Patient is worried about going out with COVID-19, has not left the home for several months, and suspect would be a significant hardship at this point. Did agree would reach out to Dr. Coulter with current situation, given goals are palliative in nature, will review current medication list given his lower blood pressures, and if any recommended medication changes. Patient is pending repeat of labs in the next couple weeks, will see if wants to add any. Patient has purposefully per his report, decrease his intake, and has had some further weight loss, he currently weighs on 10/470 pounds. Patient still continues with coughing spasms, reports intermittent wheezing, patient does not perceive any distress with this just feels like he is "clearing his throat". His lungs are clear today, he has no pedal edema, his heart rate is regular, with murmur appreciated. Past Medical History: Aortic stenosis, pulmonary hypertension, CHF, COPD, asthma, emphysema, tremors, GERD, BPH, nocturia, scoliosis, history of warts/actinic keratosis, dementia, chronic back pain chronic neck pain Social History - Living Situation Living arrangement: At home Living Situation: With spouse/s.o. Support System: Patient lives with his anderson Judy, who is quite active and still in good health. 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 They do have 2 children, a son and a daughter, who have been visiting on a regular basis but are not aware of the seriousness of his condition. He does like to avidly read, watch TV, he stays on the level 1 area of his house. He is quite sedentary, and gets easily frustrated particular around his cognitive deficits, his does redirect and distract him nicely. Medications/Allergies - Medications Home Medications: Ambulatory Orders Medication Instructions Recorded Confirmed Losartan [Cozaar] 100 mg PO DAILY 01/13/13 06/07/20 Tamsulosin [Flomax] 0.4 mg PO BID 01/13/13 06/07/20 Albuterol Sulf [Ventolin Hfa 2 puffs IH BID PRN 09/01/16 06/07/20 Inhaler] Ascorbic Acid [Vitamin C] 500 mg PO DAILY 09/01/16 06/07/20 cloNIDine [Catapres] 1 tab PO BID 09/01/16 06/07/20 Carvedilol [Coreg] 25 mg PO BID 04/01/20 06/07/20 Cholecalciferol (Vitamin D3) 1,000 mg PO DAILY 04/01/20 06/07/20 [Vitamin D3] Famotidine 20 mg PO DAILY 04/01/20 06/07/20 Furosemide 40 mg PO DAILY 04/01/20 06/07/20 Isosorbide Mononitrate ER [Imdur] 30 mg PO DAILY 04/01/20 06/07/20 Loratadine [Claritin] 10 mg PO DAILY 04/01/20 06/07/20 Oxycodone HCl 5 mg PO Q4HR PRN 04/01/20 06/07/20 Rosuvastatin Calcium 10 mg PO DAILY 04/01/20 06/07/20 Senna [Senokot] 8.6 mg PO BID PRN 04/01/20 06/07/20 polyethylene glycoL 3350 [Miralax] 8.6 mg PO DAILY MDD titrate as 04/01/20 06/07/20 needed Cyanocobalamin (Vitamin B-12) 1,000 mcg PO DAILY 05/03/20 06/07/20 [Vitamin B-12 (1000 mcg sublingual)] oxyCODONE ER [OxyCONTIN] 10 mg PO BID 06/07/20 06/07/20 - Allergies Allergies/Adverse Reactions: Allergies Allergy/AdvReac Type Severity Reaction Status Date / Time lisinopril Allergy Severe Edema Verified 09/01/16 05:18 Sulfa (Sulfonamide Allergy Severe Respiratory Verified 09/01/16 05:18 Antibiotics) tramadol Allergy Intermediate Hives Verified 09/01/16 05:18 Review of Systems - Constitutional Constitutional: reports: Fatigue, Weight loss (05/28 170; 6 months previously 190-patient reports wants to be closer to 160 feels better; somewhat on purpose). denies: Fever, Chills - Eyes Eyes: reports: Vision loss - Ears, Nose & Throat Ears, Nose & Throat: reports: Hearing loss, Hearing aids, Postnasal drainage - Cardiovascular Cardiovascular: reports: Exertional dyspnea, Decr. exercise tolerance. denies: Chest pain, Edema - Respiratory Respiratory: reports: Cough ( describes as coughing spasms;), Wheezing (unable to quantify;), SOB with exertion. denies: SOB at rest - Gastrointestinal Gastrointestinal: reports: Constipation (intermittent), Good appetite. denies: Nausea, Reflux/heartburn - Genitourinary Genitourinary: reports: Frequency - Musculoskeletal Musculoskeletal: reports: Muscle pain, Back pain, Muscle aches, Stiffness, Mus lalo weakness, Joint pain (bilateral shoulder /neck) - Integumentary Integumentary: reports: Dryness, Other (dried warts on hand) - Neurological Neurological: reports: General weakness, Memory problems (poor short term recall; defers to frequently), Abnormal gait (stiff and difficult ambulating related to pain) - Psychiatric Psychiatric: reports: Depression, Anxiety - Hematologic/Lymphatic Hematologic/Lymphatic: reports: Anemia (hgb 8.1) - All Other Systems All Other Systems: reports: Other (limited by memory issues; assists) Physical Exam - Vital Signs Temperature: 96.5 C Pulse Rate: 72 Respiratory Rate: 18 O2 Saturation: 98 (ra @ rest) Blood Pressure: 104/58 - Physical Exam General Appearance: positive: No acute distress, Alert Eyes Bilateral: positive: Normal inspection ENT: positive: No signs of dehydration Neck: positive: Trachea midline Cardiovascular: positive: Regular rate & rhythm Respiratory: positive: No respiratory distress, Diminished in bases. negative: Wheezes, Rales, Rhonchi Abdomen: positive: Non-tender, Soft Skin: positive: Pallor, Dryness, Other (warts covered with tape) Extremities: positive: Pedal edema (resolved) Neurologic/Psychiatric: positive: Disoriented to time, Weakness, Depressed mood/affect, Flat affect Palliative Care - POLST Patient has POLST: No POLST Status: DNR ( feels given his advanced directive he filled out previously it would be consistent with DNAR, patient though irritable and difficult to complete form previously, would like to revisit later or if patient not capable she will sign) Pain: Pain worsening, Location (radiates across shoulders in deltoid ; does not goe further down arms; lower back and worsesning knees), Severity (mod-severe), Comment Tiredness/Fatigue: Moderate (4-6) Drowsiness/Sedation: Comment (patient is sleeping during day easily; sleeps at night) Nausea: None Anorexia: Mild (1-3) Dyspnea: Mild (1-3) Depression: Moderate (4-6) Anxiety: Moderate (4-6) (worried about going out;) Feelings of wellbeing/Perceived Quality of Life: Poor, Worsening Sleep: Variable sleep pattern (up at night to void;) Constipation: Yes, Opoid induced, Intermittent constipation Performance Status: Patient does spend most of his time in a chair, he does drift off to sleep quite easily. reports he is still able to bathe, though she is offered to assist him. Though everything is slow and laborious, patient still dressing himself with some assistance, ambulates quite slow with a walker, I would put him at a PPS of 50% - Palliative Care Discussion: Patient with severe short-term memory issues, and notable cognitive deficits. Patient is able to engage socially, but gets quite frustrated or confused when following conversation of more complex medical decision making. Patient very much wants to avoid leaving home, it would be a taxing considerable effort, as well as suspect some of this is related to his dementia in the context of possibly some agoraphobia. He very much dislikes medical doctors, it is our third visit, and finally feel like we have some rapport and trusts our conversations. asking appropriate questions, given the palliative approach and patient's unwillingness to do much different, regarding need to follow-up with cardiology. Given it would be a taxing considerable effort, more than willing to reach out to cardiology for any medication adjustments given particularly patient's hypotension, and ongoing functional and cognitive decline. did provide advanced care planning documents that were completed in 2005, unfortunate it is very consistent with generic directions if in a "terminal condition" and patient with fragility and decline with most likely limited prognosis. shared she did read "Hard Choices for [place] People", does feel she is could make decisions consistent with his values when the time comes. Patient currently is very resistive to follow up or pursuing medical interventions, will continue to explore with him moving forward. Impression and Recommendations - Palliative Care Impression: This is a 84-year-old gentleman who presents with worsening fatigue, functional and cognitive decline, and multiple comorbidities. Patient does have worsening pain, is willing to revisit pain regimen, was quite feisty about it last time. Palliative care to provide support regarding pain and symptom management, advanced care planning, anticipatory guidance as well as coordination of care. Recommendations/Counseling Done: 1. Chronic pain syndrome. This is multifactorial, patient has more acute pain and discomfort in his shoulders bilaterally, identifies it actually" his deltoids" as well as long-term chronic back pain that impacts his ambulation and ability to tolerate standing. Have worked with a short acting schedule oxycodone, patient perceives "it does not work", reviewed again short acting pain medication given the infrequency they are taking, most likely will not address his underlying significant chronic pain. Patient has been on OxyContin 10 mg twice daily in the past, with somewhat good control, medication still in the home, will reinitiate and evaluate response. Counseling provided regarding long-acting medication with supplement of oxycodone for breakthrough pain, given patient's level of severity of pain and discomfort. 2. Constipation opioid induced. Patient and reviewed titration of bowel program, instructed to take MiraLAX daily, as well as senna 8.6 mg twice daily. Patient quite irritable and difficulty to take advice regarding bowel program, counseling provided regarding the need for balancing out opioid induced constipation. Written instructions provided. 3. Hypotension. Actually had initiate daily blood pressures as was hypertensive last visit, patient's blood pressures have run anywhere from 82/47- 125/65, with most of less than 100. Patient denies any dizziness, or symptomatology regarding this, though does continue with persistent fatigue. Patient seen by Dr. Coulter in cardiology, is due for echo and follow-up, patient quite resistant to following through on appointments, agreed would reach out to see if can coordinate care. May also be related to his anemia, which has been on a downward trend. To this point in time patient has declined any further work-up, but may be getting more problematic. 4. Fatigue. This is multifactorial, patient is up frequently at night to void, he does present with worsening kidney function, anemia, iron studies within normal limits and in January, was started on be B12 supplements. We will follow-up with cardiology if any specific labs other than CBC and CMP required, will draw in the next 1-2 weeks or sooner if patient more symptomatic. 5. Cough. is concerned, as patient does present with coughing spasms, this was not observed today. Patient reports does use inhaler intermittently, though was unable to quantify this. does not feel it is related to disc foggier, reports is intermittent but is quite pronounced. Patient's lungs are clear diminished in the bases, no wheezing noted we will continue to monitor. 6. Advanced care planning. Patient is frail, at high risk for fall, aspiration, and continued decline related to his declining kidney function as well as concern for underlying etiology of his anemia. 7. Health maintenance. Flu shot was given in left deltoid, patient consented, without any untoward effect. Reviewed signs and symptoms that may expect, teaching/CDC sheet left for patient and . Time Spent: 60 minutes with greater than 50% of this done in counseling regarding pain and symptom management, follow-up regarding coordination of care, and anticipatory guidance. Patient also received flu shot without any untoward effect. We will plan on follow-up with cardiology, coordinate labs, and medication adjustments as needed.
== END 2020-06-07 10:01 | disposition home or self-care (01) ==
LOC: PC 10:00
PROVIDERS: ATTEND Nurse Practitioner Adult Health
DX: Z51.5 Encounter for palliative care (principal); G89.4 Chronic pain syndrome; K59.03 Drug induced constipation; T40.2X5A Adverse effect of other opioids, initial encounter; I95.9 Hypotension, unspecified; R53.83 Other fatigue; D64.9 Anemia, unspecified; N18.9 Chronic kidney disease, unspecified; R05 Cough; F03.90 Unspecified dementia, unspecified severity, without behavioral disturbance, psychotic disturbance, mood disturbance, and anxiety; Z66 Do not resuscitate
CPT/HCPCS: 99350

== ENCOUNTER 2020-06-12 15:15 | Outpatient (CLI) | payer MEDICARE, BC, OTHER ==
--- NOTE | 2020-06-12 17:01 | CONSULTATION NOTE ---
Palliative Care Follow Up - Referral Referring Provider: Dr. Etienne Urrutia Time of Visit: [id number] Referral setting: Home Referral Reason: Jaw pain/Shoulder pain/Fatigue/Hypotension/CKD - Information Sources Records reviewed: Previous records reviewed History/Review of Systems obtained from: Patient, Family ( Pat) Exam limitations: Clinical condition (patient with mild dementia; STM deficits) - History of Present Illness Update Brief HPI Update: This is a feisty 84-year-old gentleman who has multiple co-morbidities and presents with ongoing moderate to high symptom burden, fluctuating functional and cognitive decline, and has been homebound related to his fatigue and pain. His pain has been improved with the reinitiation of OxyContin 10 mg twice daily, he has had less pain complaints and has not needed more than 1 oxycodone 5 mg for breakthrough pain. 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 Patient has had a 10 pound weight loss over the last 6 months, had been concerned about hypertension, when patient actually did daily blood pressures he presents with about 75% less than 100/45, denies any hypotensive symptoms. Such as dizziness, difficulty getting from sitting to standing, reports he is adequately hydrated, he does have known anemia. He does have a pending appointment with Dr. Coulter his sanding machine tender, am here to draw labs, as most likely needs to have his medications adjusted. It is a taxing considerable effort for patient to get out, have agreed will draw labs, and follow-up with Dr. Coulter regarding the goals of an echo and appointment if needed. 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 It is point tenderness on palpation, no lymphadenopathy, on examination his mouth, he does have old crowns and missing a few teeth, but no abscesses or abnormal swelling noted it does impact his ability to eat though and bite down though in his perception it has been improving. Patient has intermittent coughing spasms, reports intermittent wheezing though patient does not perceive any distress, he reports he "just clears his throat". His lungs are clear he has no signs or symptoms of infection. He has no pedal edema, his heart rate is regular with murmur appreciated. Past Medical History: Aortic stenosis, pulmonary hypertension, CHF, COPD, asthma, emphysema, tremors, GERD, BPH, nocturia, scoliosis, warts/actinic keratosis, dementia, chronic back pain, chronic neck pain, and worsening CKD Social History - Living Situation Living arrangement: At home Living Situation: With spouse/s.o. Support System: Patient lives with his anderson Judy, who is quite active and in good health. 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 They do have 2 children, son and daughter who visit on a regular basis we are not aware of the seriousness of his condition. He does like to avidly read, watch TV, he stays on the level 1 area of his house. He is quite sedentary, gets very frustrated particular on his cognitive deficits. Medications/Allergies - Medications Home Medications: Ambulatory Orders Medication Instructions Recorded Confirmed Losartan [Cozaar] 100 mg PO DAILY 01/13/13 06/07/20 Tamsulosin [Flomax] 0.4 mg PO BID 01/13/13 06/07/20 Albuterol Sulf [Ventolin Hfa 2 puffs IH BID PRN 09/01/16 06/07/20 Inhaler] Ascorbic Acid [Vitamin C] 500 mg PO DAILY 09/01/16 06/07/20 cloNIDine [Catapres] 1 tab PO BID 09/01/16 06/07/20 Carvedilol [Coreg] 25 mg PO BID 04/01/20 06/07/20 Cholecalciferol (Vitamin D3) 1,000 mg PO DAILY 04/01/20 06/07/20 [Vitamin D3] Famotidine 20 mg PO DAILY 04/01/20 06/07/20 Furosemide 40 mg PO DAILY 04/01/20 06/07/20 Isosorbide Mononitrate ER [Imdur] 30 mg PO DAILY 04/01/20 06/07/20 Loratadine [Claritin] 10 mg PO DAILY 04/01/20 06/07/20 Oxycodone HCl 5 mg PO Q4HR PRN 04/01/20 06/07/20 Rosuvastatin Calcium 10 mg PO DAILY 04/01/20 06/07/20 Senna [Senokot] 8.6 mg PO BID PRN 04/01/20 06/07/20 polyethylene glycoL 3350 [Miralax] 8.6 mg PO DAILY MDD titrate as 04/01/20 06/07/20 needed Cyanocobalamin (Vitamin B-12) 1,000 mcg PO DAILY 05/03/20 06/07/20 [Vitamin B-12 (1000 mcg sublingual)] oxyCODONE ER [OxyCONTIN] 10 mg PO BID 06/07/20 06/07/20 - Allergies Allergies/Adverse Reactions: Allergies Allergy/AdvReac Type Severity Reaction Status Date / Time lisinopril Allergy Severe Edema Verified 09/01/16 05:18 Sulfa (Sulfonamide Allergy Severe Respiratory Verified 09/01/16 05:18 Antibiotics) tramadol Allergy Intermediate Hives Verified 09/01/16 05:18 Review of Systems - Constitutional Constitutional: reports: Fatigue, Poor appetite (170 (20 pounds 6 months)). denies: Fever, Chills - Eyes Eyes: reports: Vision loss - Ears, Nose & Throat Ears, Nose & Throat: reports: Hearing loss, Hearing aids, Other (new jaw pain when eating/biting down improving slowly) - Cardiovascular Cardiovascular: reports: Exertional dyspnea, Decr. exercise tolerance. denies: Chest pain, Edema, Lightheadedness - Respiratory Respiratory: reports: Cough (intermittent coughing spasms; no increase from baseline), Wheezing (intermittent), SOB with exertion. denies: SOB at rest - Gastrointestinal Gastrointestinal: reports: Early satiety. denies: Constipation (with new bowel program going q 2-3 days; c/o gas), Nausea - Genitourinary Genitourinary: reports: Frequency - Musculoskeletal Musculoskeletal: reports: Back pain, Muscle aches, Stiffness, Limited range of motion, Muscle weakness, Assistive devices (uses walker) - Integumentary Integumentary: reports: Dryness, Other (warts on right hand) - Neurological Neurological: reports: General weakness, Memory problems, Abnormal gait (slow related to bilateral knee/back pain DJD multiple joints) - Psychiatric Psychiatric: reports: Depression, Anxiety, Other (irritabililty) - Endocrine Endocrine: reports: Diabetes type 2 (no need for tx) - Hematologic/Lymphatic Hematologic/Lymphatic: reports: Anemia. denies: Recurrent infections - All Other Systems All Other Systems: reports: Reviewed and negative (supplemented with support related to memory) Physical Exam - Vital Signs Temperature: 96.7 C Pulse Rate: 52 Respiratory Rate: 18 O2 Saturation: 99 (ra @ rest) Blood Pressure: 132/72 - Physical Exam General Appearance: positive: No acute distress, Alert Eyes Bilateral: positive: Normal inspection ENT: positive: No signs of dehydration, Other (no s/s abcess in mouth; missing a few teeth and old crowns/cavities noted; point tenderness at tempromandibular joing on exam;) Neck: positive: Trachea midline. negative: Lymphadenopathy (R), Lymphadenopathy (L) Cardiovascular: positive: Regular rate & rhythm Respiratory: positive: No respiratory distress, Diminished in bases. negative: Wheezes, Rales, Rhonchi Abdomen: positive: Non-tender, Soft Skin: positive: Pallor, Dryness, Other (warts covered with tape right hand) Extremities: positive: No pedal edema Neurologic/Psychiatric: positive: Disoriented to time, Weakness, Depressed mood/affect, Flat affect Palliative Care - POLST Patient has POLST: Yes POLST Status: DNR, Selective Treatment Pain: Pain improved, Severity (presents today with pain improved and moderate) Tiredness/Fatigue: Severe (7-10) Drowsiness/Sedation: Moderate (4-6) Nausea: None Anorexia: Moderate (4-6), Weight loss Dyspnea: Moderate (4-6) (with activity) Depression: Mild (1-3) Anxiety: Mild (1-3) Feelings of wellbeing/Perceived Quality of Life: Fair, Worsening Sleep: Variable sleep pattern Constipation: Yes, Opoid induced, Managed (improved) Performance Status: Patient is able to ambulate short distances and home, he does spend most of his time in his chair, does drift off to sleep quite easily. reports he still able to bathe though it is a time-consuming process. She has offered to assist him he remains quite strident and trying to remain independent. Everything is fairly slow and laborious, patient still dressing himself with some assistance, ambulates slowly with a walker, he is a PPS of 50%. - Palliative Care Discussion: Please see discussion 06/07 Impression and Recommendations - Palliative Care Impression: This is an 84-year-old gentleman who presents with worsening symptom burden, fatigue, pain though improvement with new regimen, anorexia, functional and cognitive decline, and multiple comorbidities in the setting of advanced age. Palliative care providing support regarding pain and symptom management, advanced care planning, anticipatory guidance as well as coordination of care. Recommendations/Counseling Done: 1. Chronic pain syndrome. This is multifactorial, have transition to long- acting OxyContin 10 mg twice daily, with improvement of his pain perception. Patient has poor short-term memory, and poor recall regarding comparing effectiveness, though has been tracking, reports he is doing much better as far as his complaints of pain, and has only needed oxycodone 1 time. We will continue on current regimen and evaluate for ongoing effectiveness. 2. Opioid-induced constipation. Patient complained of increased gas with the senna, the bowels are moving every 1 to 2 days. Recommended increasing the MiraLAX versus senna, counseling provided regarding the need again to balance out opioid-induced constipation. Reviewed written instructions. 3. Hypotension. Patient without any dizziness or symptomology related to this, though does continue with persistent fatigue. Is due to see Dr. Coulter in cardiology for echo and follow-up patient is quite resistant for follow-up on appointments. In review of his records, will go ahead and draw labs today, suspect patient may be experience either worsening anemia and/or kidney function. Will reach out and see if able to modify medication regimen with coordinating care. 4. Fatigue. This is multifactorial. Patient is up frequently at night to void, has known worsening kidney function, anemia, though iron studies within normal limits in January. Has started on B12 supplements, will draw with next round of labs. Labs drawn today, delivered [facility] lab. 5. TMJ pain. Patient does admit to grinding teeth, and sure if this is the underlying etiology. Patient does not present with any signs or symptoms of infection, no lymphadenopathy, though does have poor dentition. Instructed could use heat or cold pack to left jaw for improvement, if no improvement may need to follow-up with dentist. Counseling provided regarding modifications to diet with focus on maintaining calories. Time Spent: 30 minutes with greater 50% of this time in counseling regarding symptom management, labs drawn right antecubital delivered [facility], plan is to coordinate with Dr. Coulter regarding medication adjustments.
== END 2020-06-12 15:16 | disposition home or self-care (01) ==
LOC: PC 15:15
PROVIDERS: ATTEND Nurse Practitioner Adult Health
DX: Z51.5 Encounter for palliative care (principal); G89.4 Chronic pain syndrome; K59.03 Drug induced constipation; T40.2X5A Adverse effect of other opioids, initial encounter; I95.9 Hypotension, unspecified; R53.83 Other fatigue; M26.629 Arthralgia of temporomandibular joint, unspecified side; I50.9 Heart failure, unspecified; N18.9 Chronic kidney disease, unspecified; J43.9 Emphysema, unspecified; Z66 Do not resuscitate
CPT/HCPCS: 99348

== ENCOUNTER 2020-06-12 15:45 | Outpatient (CLI) | payer MEDICARE, BC, OTHER ==
[2020-06-12 16:19] LABS: ALBUMIN 3.5 g/dL (3.2-5.5); ALBUMIN/GLOBULIN RATIO 1.1 (1.0-2.2); BILIRUBIN,TOTAL 0.9 mg/dL (0.2-1.0); CALCIUM 8.9 mg/dL (8.5-10.3); TOTAL PROTEIN 6.6 g/dL (6.7-8.2)
[2020-06-12 16:38] LABS: BASOPHILS % (AUTO) 0.4 %; EOSINOPHILS # (AUTO) 0.1 10^3/uL (0.0-0.7); HGB - HEMOGLOBIN 8.9 g/dL (14.0-18.0); LYMPHOCYTES # (AUTO) 0.5 10^3/uL (1.5-3.5); LYMPHOCYTES % (AUTO) 4.7 %; MEAN CORPUSCULAR HEMOGLOBIN 30.1 pg (27.0-31.0); MEAN CORPUSCULAR HGB CONC 32.6 g/dL (32.0-36.0); MEAN CORPUSCULAR VOLUME 92.2 fL (80.0-94.0); MEAN PLATELET VOLUME 10.4 fL (7.4-11.4); MONOCYTES # (AUTO) 1.3 10^3/uL (0.0-1.0); MONOCYTES % (AUTO) 13.2 %; NEUTROPHILS # (AUTO) 7.7 10^3/uL (1.5-6.6); NEUTROPHILS % (AUTO) 80.4 %; PLT - PLATELET COUNT 220 10^3/uL (130-450); RED BLOOD COUNT 2.96 10^6/uL (4.70-6.10); RED CELL DISTRIBUTION WIDTH 13.6 % (12.0-15.0); WHITE BLOOD COUNT 9.6 x10^3/uL (4.8-10.8)
== END 2020-06-12 23:59 | disposition home or self-care (01) ==
LOC: LAB.R 15:45
PROVIDERS: ATTEND Nurse Practitioner Adult Health
DX: D63.8 Anemia in other chronic diseases classified elsewhere (principal); Z79.899 Other long term (current) drug therapy
CPT/HCPCS: 80053; 85025

== ENCOUNTER 2020-07-13 10:00 | Outpatient (CLI) | payer MEDICARE, BC, OTHER ==
--- NOTE | 2020-07-14 08:55 | CONSULTATION NOTE ---
Palliative Care Follow Up - Referral Referring Provider: Dr. Urrutia/switched PCP to Zhanna WILDER Time of Visit: 06-04 Referral setting: Home Referral Reason: CKD Stage IV/Dementia/Chronic Back Pain - Information Sources Records reviewed: Previous records reviewed History/Review of Systems obtained from: Patient, Family ( Pat) Exam limitations: Clinical condition (patient with severe STM deficits; is able to engage but little insight into health issues) - History of Present Illness Update Brief HPI Update: This is a feisty 84-year-old gentleman who has multiple comorbidities and presents with fluctuating but slow functional and cognitive decline, has been homebound related to fatigue and pain. His pain has improved with the reinitiation of OxyContin 10 mg twice daily, less complaints and not needing anything for breakthrough pain. Patient reports his most significant area of pain currently is his lower back radiating into his right hip. It does appear the pain in his upper back and shoulders, has improved. 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 Patient continues to decline, his worsening kidney function, and did prompt a call to the bar tacker sewing machine to see what we could adjust in the context of his hypotension. He has been discontinued off the clonidine, decreased losartan, and discontinued on the isosorbide. The next step if he continues with out any signs or symptoms of hypertension and/or fluid issues is to decrease his furosemide. Patient's symptoms of of temporomandibular joint pain, last time has resolved. Patient does not remember but reports continuing to have intermittent coughing spasms medication wheezing. He does use the albuterol with resolution. It has not progressed in any way. Patient does defer to his quite frequently regarding ROS questions, but is engaged, but does not seem to have significant insight into his deficits and or decline. His reports he is been very irritable, has intermittent anger bursts, and often I related to challenges regarding his memory issues. reports right foot with dry scaly skin, wondering what kind of intervention is needed. Past Medical History: Aortic stenosis, pulmonary hypertension, CHF, COPD, asthma, emphysema, tremors, GERD, BPH, nocturia, scoliosis, warts, actinic keratosis, dementia, chronic back pain, chronic neck pain, and CKD stage IV. Social History - Living Situation Living arrangement: At home Living Situation: With spouse/s.o. Support System: Mehnaz lives with his anderson Judy, who is quite active and in good health. 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 They do have 2 children, son and daughter who live within ability come visit, but given the pandemic have limited their interactions. He does like to avidly read, watches TV, he is getting quite distressed with the current pandemic and political climate, he does stay on level one of his house. He is quite sedentary, and gets very frustrated particularly with his cognitive deficits. Medications/Allergies - Medications Home Medications: Ambulatory Orders Medication Instructions Recorded Confirmed Losartan [Cozaar] 50 mg PO DAILY 01/13/13 07/13/20 Tamsulosin [Flomax] 0.4 mg PO BID 01/13/13 07/13/20 Albuterol Sulf [Ventolin Hfa 2 puffs IH BID PRN 09/01/16 07/13/20 Inhaler] Ascorbic Acid [Vitamin C] 500 mg PO DAILY 09/01/16 07/13/20 Carvedilol [Coreg] 25 mg PO BID 04/01/20 07/13/20 Cholecalciferol (Vitamin D3) 1,000 mg PO DAILY 04/01/20 07/13/20 [Vitamin D3] Famotidine 40 mg PO DAILY 04/01/20 07/13/20 Furosemide 40 mg PO DAILY 04/01/20 07/13/20 Loratadine [Claritin] 10 mg PO DAILY PRN 04/01/20 07/13/20 Oxycodone HCl 5 mg PO Q4HR PRN 04/01/20 07/13/20 Rosuvastatin Calcium 10 mg PO DAILY 04/01/20 07/13/20 Senna [Senokot] 8.6 mg PO BID 04/01/20 07/13/20 polyethylene glycoL 3350 [Miralax] 8.6 mg PO DAILY MDD titrate as 04/01/20 07/13/20 needed Cyanocobalamin (Vitamin B-12) 1,000 mcg PO DAILY 05/03/20 07/13/20 [Vitamin B-12 (1000 mcg sublingual)] oxyCODONE ER [OxyCONTIN] 10 mg PO BID 06/07/20 07/13/20 - Allergies Allergies/Adverse Reactions: Allergies Allergy/AdvReac Type Severity Reaction Status Date / Time lisinopril Allergy Severe Edema Verified 09/01/16 05:18 Sulfa (Sulfonamide Allergy Severe Respiratory Verified 09/01/16 05:18 Antibiotics) tramadol Allergy Intermediate Hives Verified 09/01/16 05:18 Review of Systems - Constitutional Constitutional: reports: Fatigue, Weight loss - Eyes Eyes: reports: Vision loss - Ears, Nose & Throat Ears, Nose & Throat: reports: Hearing loss, Hearing aids, Postnasal drainage. denies: Dental pain - Cardiovascular Cardiovascular: reports: Decr. exercise tolerance. denies: Chest pain, Edema - Respiratory Respiratory: reports: Cough (intermittent coughing spasms; no increase from baseline), Wheezing (intermittent use inhaler), SOB with exertion. denies: SOB at rest - Gastrointestinal Gastrointestinal: reports: Constipation (had to use MOM 2 days ago, they had not added second Senna), Good appetite - Genitourinary Genitourinary: reports: Frequency - Musculoskeletal Musculoskeletal: reports: Muscle pain, Back pain, Muscle aches, Stiffness, Muscle weakness, Joint pain - Integumentary Integumentary: reports: Dryness - Neurological Neurological: reports: General weakness, Memory problems, Abnormal gait (slow related to bilateral knee/back pain DJD multiple joints) - Psychiatric Psychiatric: reports: Depression, Anxiety, Other (irritabililty and anger outbursts) - Hematologic/Lymphatic Hematologic/Lymph: Anemia - All Other Systems All Other Systems: reports: Other (pateint with poor memory often defers to Pat for ROS) Physical Exam - Vital Signs Temperature: 96.5 C Pulse Rate: 52 Respiratory Rate: 18 O2 Saturation: 99 (ra @ rest) Blood Pressure: 114/68 - Physical Exam General Appearance: positive: No acute distress, Alert Eyes Bilateral: positive: Normal inspection ENT: positive: No signs of dehydration Neck: positive: Trachea midline Cardiovascular: positive: Irregularly irregular, Other (murmur) Respiratory: positive: No respiratory distress, Diminished in bases. negative: Wheezes Abdomen: positive: Non-tender, Soft Skin: positive: Pallor, Dryness, Other (right foot with peeling skin) Extremities: positive: No pedal edema Neurologic/Psychiatric: positive: Oriented x3, Depressed mood/affect, Flat affect Palliative Care - POLST Patient has POLST: No Pain: Pain improved, Comment (see HPI) Tiredness/Fatigue: Moderate (4-6) Drowsiness/Sedation: Moderate (4-6) Nausea: None Anorexia: None Dyspnea: Mild (1-3) Depression: Mild (1-3) Anxiety: Mild (1-3) Feelings of wellbeing/Perceived Quality of Life: Fair, No change Sleep: Variable sleep pattern Constipation: Yes, Intermittent constipation Performance Status: Patient is still able to ambulate short distances, with his walker. He is quite sedentary, mostly sits in the recliner at the dining room table. He does like to avidly read so stays engaged both with reading and TV. He is able to manage his own ADLs, just provides supervision for safety as patient allows. - Palliative Care Discussion: remains reluctant to have a POLST conversation with patient, given his poor insight and difficulty understanding. He gets quite irritable when presented with information that he does not understand. She does feel like his previous living will/directives do direct DNA R, and focus on comfort. She is worried with worsening kidney status, if it would not be appropriate to have a conversation with him regarding dialysis. We did discuss in the context of this it would be a major surgery to put in a fistula, and given his age and disposition most likely would be more of a burden than the benefit. Patients can still have some quantity of life and renal failure, will continue to monitor, and approach with next visit. Her preference and given patient's strong feelings about the medical establishment, would be to avoid hospitalization and ED or any medical interventions that might not be supportive for quality of life for him Addendum. Patient's kidney status is not improving, in fact may be worsening. Will offer up conversation again, allowing to temper and provide guidance. Results - Lab Results Lab results reviewed: Yes Lab and Imaging Results: Hemoglobin 9.3, hematocrit 28.8, BUN 52, creatinine 3.2, GFR 19. Labs were drawn at visit in right antecubital and delivered to [facility] Impression and Recommendations - Palliative Care Impression: This is an 84-year-old gentleman who presents with multiple comorbidities, and continued high symptom burden of fatigue, pain, anorexia, functional and cognitive decline. He has this all in the setting of advanced age, and worsening CKD. Palliative care providing support regarding pain and symptom management, advanced care planning, anticipatory guidance, as well as coordination of care. Recommendations/Counseling Done: 1. Chronic pain syndrome. This is multifactorial, patient has improved on transition to long-acting OxyContin 10 mg twice daily, patient perceives improved as well. Patient does have poor short-term memory, and poor recall regarding comparing effectiveness, though does feel like his pain is better and patient able to agree with this. 2. Opioid-induced constipation. Patient had to take milk of mag couple days ago, again counseled regarding milk of mag and kidney failure. Patient had not increased MiraLAX, recommended he increase senna to twice daily. We will continue to monitor. 3. Hypotension. Patient's blood pressures for the month of improved, has been taking them every times to the days, all of them except 1 are over 100, highest is 129/61. Pulse remained stable between 52 and 60. Patient does not have any lower extremity edema, no crackles in his bases, given his worsening kidney function, will go ahead and decrease furosemide from 40 mg to 20 mg. 4. Anemia related to renal function. It has increased to 9.3. Patient had not been consistent about taking B12 so did not do a B12 level. Instructed that this was an important supplement, patient dislikes pill burden. Will agree to continue at this point in time. Will check with next labs. 5. Fatigue. This is multifactorial, patient is up frequently at night to void, suspect also related to his worsening kidney function, anemia, and sedentary/advanced age. Encouraged to continue to try and increase ambulation, important patient stays functional and independent for as long as possible. 6. Tinea pedis. Patient has felt to skin, as well as rash. Instructed on cleaning and use of Lotrimin spray for 1 week. Mild case, should improve, also encouraged to use lotion on feet to keep dryness down. Patient does have ecchymosis as well, will is filing his nails, patient is unable to get out to podiatry. 7. Depression. This is multifactorial, patient is feeling increased irr itability, persistent sadness, family plans have been canceled because of pandemic. They are quite isolated, Pat is trying to stay connected with zoom with some of her activities. Provided presents for expression of fears and concerns, counseling provided regarding Covid restrictions and recommendations. 8. Advanced care planning. Patient does recognize his decline, and advanced age, unclear how much insight he has into the ramifications of his worsening kidney function. After much conversation with , will explore this with next visit, patient does have directive, but would benefit from POLST. Time Spent: 60 minutes with greater than 50% of this done in counseling regarding pain and symptom management, drawing of labs and delivery to [facility], as well as anticipatory guidance with .
== END 2020-07-13 10:01 | disposition home or self-care (01) ==
LOC: PC 10:00
PROVIDERS: ATTEND Nurse Practitioner Adult Health
DX: Z51.5 Encounter for palliative care (principal); G89.4 Chronic pain syndrome; K59.03 Drug induced constipation; T40.2X5A Adverse effect of other opioids, initial encounter; I95.9 Hypotension, unspecified; N18.4 Chronic kidney disease, stage 4 (severe); D63.1 Anemia in chronic kidney disease; R53.83 Other fatigue; B35.3 Tinea pedis; F32.9 Major depressive disorder, single episode, unspecified; I50.9 Heart failure, unspecified; J44.9 Chronic obstructive pulmonary disease, unspecified; R41.81 Age-related cognitive decline
CPT/HCPCS: 99350

== ENCOUNTER 2020-07-13 10:45 | Outpatient (CLI) | payer MEDICARE, BC, OTHER ==
[2020-07-13 12:49] LABS: BASOPHILS # (AUTO) 0.1 10^3/uL (0.0-0.1); BASOPHILS % (AUTO) 0.9 %; EOSINOPHILS # (AUTO) 0.4 10^3/uL (0.0-0.7); EOSINOPHILS % (AUTO) 6.2 %; HGB - HEMOGLOBIN 9.3 g/dL (14.0-18.0); LYMPHOCYTES # (AUTO) 0.5 10^3/uL (1.5-3.5); LYMPHOCYTES % (AUTO) 8.3 %; MEAN CORPUSCULAR HEMOGLOBIN 30.7 pg (27.0-31.0); MEAN CORPUSCULAR HGB CONC 32.3 g/dL (32.0-36.0); MEAN PLATELET VOLUME 10.7 fL (7.4-11.4); MONOCYTES % (AUTO) 14.8 %; NEUTROPHILS # (AUTO) 4.5 10^3/uL (1.5-6.6); NEUTROPHILS % (AUTO) 69.5 %; PLT - PLATELET COUNT 190 10^3/uL (130-450); RED BLOOD COUNT 3.03 10^6/uL (4.70-6.10); RED CELL DISTRIBUTION WIDTH 14.3 % (12.0-15.0); WHITE BLOOD COUNT 6.5 x10^3/uL (4.8-10.8)
[2020-07-13 12:57] LABS: ALBUMIN 3.6 g/dL (3.2-5.5); ALBUMIN/GLOBULIN RATIO 1.2 (1.0-2.2); BILIRUBIN,TOTAL 0.7 mg/dL (0.2-1.0); CALCIUM 8.8 mg/dL (8.5-10.3); CREATININE 3.2 mg/dL (0.6-1.2); TOTAL PROTEIN 6.6 g/dL (6.7-8.2)
== END 2020-07-13 23:59 | disposition home or self-care (01) ==
LOC: LAB.R 10:45
PROVIDERS: ATTEND Nurse Practitioner
DX: D63.1 Anemia in chronic kidney disease (principal); Z79.899 Other long term (current) drug therapy
CPT/HCPCS: 80053; 85025

== ENCOUNTER 2020-08-11 07:00 | Outpatient (CLI) | payer MEDICARE, BC, OTHER ==
[2020-08-11 11:54] LABS: BASOPHILS # (AUTO) 0.1 10^3/uL (0.0-0.1); BASOPHILS % (AUTO) 0.8 %; EOSINOPHILS # (AUTO) 0.7 10^3/uL (0.0-0.7); EOSINOPHILS % (AUTO) 9.1 %; HGB - HEMOGLOBIN 9.2 g/dL (14.0-18.0); LYMPHOCYTES # (AUTO) 0.6 10^3/uL (1.5-3.5); LYMPHOCYTES % (AUTO) 7.5 %; MEAN CORPUSCULAR HEMOGLOBIN 31.4 pg (27.0-31.0); MEAN CORPUSCULAR HGB CONC 32.6 g/dL (32.0-36.0); MEAN CORPUSCULAR VOLUME 96.2 fL (80.0-94.0); MEAN PLATELET VOLUME 10.5 fL (7.4-11.4); MONOCYTES % (AUTO) 13.9 %; NEUTROPHILS % (AUTO) 68.4 %; PLT - PLATELET COUNT 184 10^3/uL (130-450); RED BLOOD COUNT 2.93 10^6/uL (4.70-6.10); RED CELL DISTRIBUTION WIDTH 14.3 % (12.0-15.0); WHITE BLOOD COUNT 7.3 x10^3/uL (4.8-10.8)
[2020-08-11 12:21] LABS: CALCIUM 9.1 mg/dL (8.5-10.3); CREATININE 2.4 mg/dL (0.6-1.2)
== END 2020-08-11 23:59 | disposition home or self-care (01) ==
LOC: LAB 07:00
PROVIDERS: ATTEND Nurse Practitioner
DX: D63.1 Anemia in chronic kidney disease (principal); Z79.899 Other long term (current) drug therapy
CPT/HCPCS: 80048; 82607; 85025

== ENCOUNTER 2020-08-11 10:00 | Outpatient (CLI) | payer MEDICARE, BC, OTHER ==
--- NOTE | 2020-08-11 16:22 | CONSULTATION NOTE ---
Palliative Care Follow Up - Referral Referring Provider: Dr. Urrutia/Zhanna WILDER Time of Visit: Referral setting: Home Referral Reason: CKD IV/Dementia/CHF - Information Sources Records reviewed: Previous records reviewed History/Review of Systems obtained from: Patient, Family ( Judy) Exam limitations: Clinical condition (patient with worsening STM deficits; defers to ) - History of Present Illness Update Brief HPI Update: This is a feisty 84-year-old gentleman his multiple comorbidities, and presents with fluctuating but slow functional and cognitive decline. Patient has been homebound related to his fatigue and chronic pain. His pain has improved with the reinitiation of OxyContin 10 mg twice daily, reports currently under control, has had less complaints and has not needed anything for breakthrough. Patient has known cervical spondylosis, with myelopathy at C4-C5, he is able to ambulate though very slow, he has had no falls. Patient medications adjusted CKD DC for has been worsening, today does present with improvement with decrease of furosemide to 20 mg. Does not present with any increased signs or symptoms of fluid overload, lungs are clear, no pedal edema. His blood pressures have been within normal range. Patient was having some difficulty with his tinea pedis, reports skin and feet are much better now. 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 He does get quite frustrated and does have some insight into his memory deficits. He does depend quite a bit on his . He does seem in a good mood and easy to engage today. She though has noted continued forgetfulness and needing some increased assistance particularly cueing with things he could do before. Past Medical History: Aortic stenosis, pulmonary hypertension, CHF, COPD, asthma, emphysema, tremors, GERD, BPH, nocturia, scoliosis, actinic keratosis, dementia, chronic back pain, chronic neck pain, and CKD stage IV Social History - Living Situation Living arrangement: At home Living Situation: With spouse/s.o. Support System: Patient lives with his anderson Judy, who is quite active in good health. 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 They do have 2 children a son and a daughter but have not been able to come visit because of the pandemic. He does like to avidly read, though admits he does not remember what is read, he does watch TV, he is sleeping more, he is quite distressed with the current pandemic and political climate. He is quite sedentary, and gets very frustrated particularly with his cognitive deficits. Medications/Allergies - Medications Home Medications: Ambulatory Orders Medication Instructions Recorded Confirmed Losartan [Cozaar] 50 mg PO DAILY 01/13/13 08/11/20 Tamsulosin [Flomax] 0.4 mg PO BID 01/13/13 08/11/20 Albuterol Sulf [Ventolin Hfa 2 puffs IH BID PRN 09/01/16 08/11/20 Inhaler] Ascorbic Acid [Vitamin C] 500 mg PO DAILY 09/01/16 08/11/20 Carvedilol [Coreg] 25 mg PO BID 04/01/20 08/11/20 Cholecalciferol (Vitamin D3) 1,000 mg PO DAILY 04/01/20 08/11/20 [Vitamin D3] Famotidine 20 mg PO BID 04/01/20 08/11/20 Furosemide 20 mg PO DAILY 04/01/20 08/11/20 Loratadine [Claritin] 10 mg PO DAILY PRN 04/01/20 08/11/20 Oxycodone HCl 5 mg PO Q4HR PRN 04/01/20 08/11/20 Rosuvastatin Calcium 10 mg PO DAILY 04/01/20 08/11/20 Senna [Senokot] 8.6 mg PO BID 04/01/20 08/11/20 polyethylene glycoL 3350 [Miralax] 8.6 mg PO DAILY MDD titrate as 04/01/20 08/11/20 needed Cyanocobalamin (Vitamin B-12) 2,500 mcg PO DAILY 05/03/20 08/11/20 [Vitamin B-12 (1000 mcg sublingual)] oxyCODONE ER [OxyCONTIN] 10 mg PO BID 06/07/20 08/11/20 - Allergies Allergies/Adverse Reactions: Allergies Allergy/AdvReac Type Severity Reaction Status Date / Time lisinopril Allergy Severe Edema Verified 09/01/16 05:18 Sulfa (Sulfonamide Allergy Severe Respiratory Verified 09/01/16 05:18 Antibiotics) tramadol Allergy Intermediate Hives Verified 09/01/16 05:18 Review of Systems - Constitutional Constitutional: reports: Fatigue - Eyes Eyes: reports: Vision loss - Ears, Nose & Throat Ears, Nose & Throat: reports: Hearing loss, Hearing aids, Postnasal drainage. denies: Dental pain - Cardiovascular Cardiovascular: reports: Irregular heart rate, Decr. exercise tolerance. denies: Chest pain, Edema - Respiratory Respiratory: reports: Cough (intermittent coughing spasms; no increase from baseline), Wheezing (intermittent use inhaler not noted at visit), SOB with exertion. denies: SOB at rest - Gastrointestinal Gastrointestinal: reports: Constipation (had to use MOM 2 days ago, they had not added second Senna), Good appetite - Genitourinary Genitourinary: reports: Frequency, Nocturia - Musculoskeletal Musculoskeletal: reports: Muscle pain, Back pain, Muscle aches, Stiffness, Muscle weakness, Joint pain - Integumentary Integumentary: reports: Dryness, Other (reports foot issues resolved) - Neurological Neurological: reports: General weakness, Memory problems, Abnormal gait (slow related to bilateral knee/back pain DJD multiple joints) - Psychiatric Psychiatric: reports: Depression, Anxiety - Hematologic/Lymphatic Hematologic/Lymph: Anemia - All Other Systems All Other Systems: reports: Other (pateint with poor memory often defers to Pat for ROS) Physical Exam - Vital Signs Temperature: 96.7 C Pulse Rate: 55 Respiratory Rate: 18 O2 Saturation: 97 (ra @ rest) Blood Pressure: 138/68 - Physical Exam General Appearance: positive: No acute distress, Alert Eyes Bilateral: positive: Normal inspection ENT: positive: No signs of dehydration Neck: positive: Trachea midline Cardiovascular: positive: Irregular, Systolic murmur Respiratory: positive: No respiratory distress, Diminished throughout. negative: Wheezes Abdomen: positive: Non-tender, Soft Skin: positive: Pallor, Dryness, Wound (small wound right hand; no s/s infection; dried eschar) Extremities: positive: Pedal edema Neurologic/Psychiatric: positive: Mood/affect nml, Disoriented to time, Weakness, Flat affect Palliative Care - POLST Patient has POLST: Yes POLST Status: DNR, Comfort Measures (completed with see PC conversation) Pain: Pain improved, Location (back/neck knees) Tiredness/Fatigue: Moderate (4-6) Drowsiness/Sedation: Moderate (4-6) Nausea: None Anorexia: Mild (1-3) Dyspnea: Moderate (4-6) (with activity) Depression: Mild (1-3) Anxiety: Mild (1-3) (with conversation regarding EOL) Feelings of wellbeing/Perceived Quality of Life: Fair, Acceptable, Worsening Sleep: Variable sleep pattern (up at night with voiding) Constipation: Yes, Opoid induced, Intermittent constipation (improved with addition of senna; forget miralax) Performance Status: Patient is slow from getting to sitting to standing, ambulates just short distances, again very slow with walker. Is still able to manage his bathing, though does help sometimes with cueing and safety oversight. - Palliative Care Discussion: Much discussion regarding COVID-19 vaccine, but did give us a leeway into discussing end-of-life. Patient admits does not like to talk about it, is hoping he just goes in his sleep. We did discuss if he did going to sleep but he want us to try to resuscitate him, he said no leave well enough alone. Patient unable to appreciate the nuances of decision-making regarding goals of care, though does want to be at home, avoid hospitalization, and does recognize with his advanced age it is "inevitable". Patient has filled out prior advanced care directives, that would be consistent with a POLST. has been hesitant to move forward on this, but does feel confident at this point in time to be able to translate that into POLST my concern is patient is going to have a fall or an event, and will receive CPR when this is not desired. Discussion with further outside of patient's hearing, as he does get quite anxious, and defers to her. Did fill out out as DN AR/DNI as well as comfort focused care. Determine use of antibiotics with comfort as a goal as well as no medically assisted nutrition. We did discuss in the context of patient's age, core mobilities, worsening kidney function, patient does have shortened life expectancy of most likely months not years, and if does have deteriorating kidney status more likely quicker course. We did discuss indicators of imminent decline would be a decline in functional status worsening cognitive status, and weight loss. has been noting functional and cognitive decline, though these have been slow changes does recognize patients frailty. Results - Lab Results Lab results reviewed: Yes Lab and Imaging Results: Patient with improvement in his lab values, hematocrit 28.2, hemoglobin 9.2, BUN 35, creatinine down to 2.4, GFR up to 26 from 19, and B12 within normal limits now. Impression and Recommendations - Palliative Care Impression: This is an 84-year-old gentleman who presents with multiple comorbidities, does have some improvement in his symptom burden, with more improved pain, anorexia is improved, though continues with functional and cognitive decline. This is all in the setting of advanced age and CKD stage IV. Have been adjusting medications, with improvement finally though still fragile of the GFR of 26. Palliative care continue provide support regarding pain and symptom management, advanced care planning, anticipatory guidance as well as coordination of care. Recommendations/Counseling Done: 1. Chronic pain syndrome. This is multifactorial, patient is on long-acting OxyContin 10 mg twice daily, patient reports pain currently well controlled. perceives this as well. Patient does have short-term memory, is unable to compare effectiveness but overall patient reports level of comfort is satisfactory. 2. Opioid-induced constipation. Patient has been on senna twice daily, does intermittently forget MiraLAX, has only needed to use milk of mag occasionally, is doing better with constipation overall. 3. Hypotension. Patient's blood pressures are now within acceptable range, patient does not have any lower extremity edema, no crackles in bases, has tolerated decrease of furosemide from 40 mg to 20 mg with improved though only slight of course kidney function. 4. Anemia related to renal function. Does appear stable at this point in time, he is taking B12 has come within normal limits. 5. Fatigue. This is multifactorial. Patient is up frequently at night to void, suspect also related to his worsening kidney function and anemia, as well as sedentary/advanced stage. Goal is for patient to remain as functional independent as long as possible, still ambulatory with his walker though only for short distances. 6. Tinea pedis. has been providing support, reports has improved and resolved. 7. Depression. This is multifactorial, patient remains fairly depressed though much more engaged and animated today. They are quite isolated, are discouraged with the isolation and concern of pandemic. Education provided regarding the Covid vaccine and risk. 8. Advanced care planning. Patient does recognize his decline, patient does not present with decision-making capacity other than to communicate he would not want to be resuscitated if he was gone, he is unable to discern the nuances needed for the POLST. Discussion regarding end-of-life wishes overall, the patient finds this quite distasteful, was able to participate today as well as have advanced care planning documents. feels confident this point in time given our conversation to fill out the POLST. DN AR/DNI and comfort focused measures, goal is to avoid any hospitalization or ED visits and allow natural when time comes. Counseling provided how to use a POLST if has to call 911, to make sure patient gets appropriate care and also if needs to access emergent care. She will make copies, we had to have the conversation out on the porch, she will sign an give to me with next visit Time Spent: 45 minutes with greater than 50% of this done in counseling regarding goals of care, symptom management, and anticipatory guidance.
== END 2020-08-11 10:01 | disposition home or self-care (01) ==
LOC: PC 10:00
PROVIDERS: ATTEND Nurse Practitioner Adult Health
DX: Z51.5 Encounter for palliative care (principal); G89.4 Chronic pain syndrome; K59.03 Drug induced constipation; T40.2X5A Adverse effect of other opioids, initial encounter; N18.4 Chronic kidney disease, stage 4 (severe); I50.9 Heart failure, unspecified; D63.1 Anemia in chronic kidney disease; Z66 Do not resuscitate
CPT/HCPCS: 99349

== ENCOUNTER 2020-09-20 07:00 | Outpatient (CLI) | payer MEDICARE, BC, OTHER ==
[2020-09-20 15:55] LABS: BASOPHILS % (AUTO) 0.5 %; EOSINOPHILS # (AUTO) 0.3 10^3/uL (0.0-0.7); EOSINOPHILS % (AUTO) 3.6 %; LYMPHOCYTES # (AUTO) 0.7 10^3/uL (1.5-3.5); LYMPHOCYTES % (AUTO) 9.1 %; MEAN CORPUSCULAR HGB CONC 31.7 g/dL (32.0-36.0); MEAN CORPUSCULAR VOLUME 97.9 fL (80.0-94.0); MONOCYTES % (AUTO) 12.7 %; NEUTROPHILS # (AUTO) 5.9 10^3/uL (1.5-6.6); NEUTROPHILS % (AUTO) 73.6 %; PLT - PLATELET COUNT 189 10^3/uL (130-450); RED CELL DISTRIBUTION WIDTH 14.3 % (12.0-15.0)
[2020-09-20 16:05] LABS: ALBUMIN 3.5 g/dL (3.2-5.5); ALBUMIN/GLOBULIN RATIO 1.3 (1.0-2.2); BILIRUBIN,TOTAL 0.7 mg/dL (0.2-1.0); CREATININE 2.4 mg/dL (0.6-1.2); TOTAL PROTEIN 6.1 g/dL (6.7-8.2)
[2020-09-20 16:19] LABS: T4 (THYROXINE) 7.77 ug/dL (6.09-12.23)
[2020-09-20 16:22] LABS: THYROID STIMULATING HORMONE 1.59 uIU/mL (0.34-5.60)
== END 2020-09-20 23:59 | disposition home or self-care (01) ==
LOC: LAB.R 07:00
PROVIDERS: ATTEND Nurse Practitioner Adult Health
DX: R53.83 Other fatigue (principal); D63.1 Anemia in chronic kidney disease; Z79.899 Other long term (current) drug therapy
CPT/HCPCS: 80053; 82607; 84436; 84443; 85025

== ENCOUNTER 2020-09-20 17:29 | Outpatient (CLI) | payer MEDICARE, BC, OTHER ==
--- NOTE | 2020-09-20 17:45 | CONSULTATION NOTE ---
Palliative Care Follow Up - Referral Referring Provider: Zhanna WILDER Time of Visit: [id number] Referral setting: Home Referral Reason: CKD IV/Dementia /CHF - Information Sources Records reviewed: Previous records reviewed History/Review of Systems obtained from: Patient, Family ( Judy) Exam limitations: Clinical condition (patient with worsening STM deficits) - History of Present Illness Update Brief HPI Update: This is a feisty 84-year-old gentleman with multiple comorbidities, presents with fluctuating but slow functional and cognitive decline. He has been homebound related to his fatigue and chronic pain, his pain is improved with the reinitiation of OxyContin 10 mg twice daily. Patient has known cervical spondylosis with myelopathy at C4-C5, he is able to ambulate very slow, it is difficult for him to get from sitting to standing, he has had no falls. Patient does have CKD, have been titrating medications for improvement with decrease of furosemide. He has not presented with any signs or symptoms of fluid overload, lungs are clear, no pedal edema. His blood pressures have been within good range. He does complain of increased cough and wheezing, does have underlying COPD as well as pulmonary hypertension, his lungs are clear today and decreased in the bases, no wheezing noted. Patient's dementia with increased forgetfulness is been more noticeable to the . Patient defers frequently to her during the conversation and recall of ROS. He does get quite frustrated, does continue to read, does have some insight to his memory deficits but unable to compensate. He is in a good mood today, and easy to engage. Past Medical History: Aortic stenosis, pulmonary hypertension, CHF, COPD, asthma, emphysema, tremors, GERD, BPH, nocturia, scoliosis, actinic keratosis, dementia, chronic back pain, chronic neck pain, CKD stage IV Social History - Living Situation Living arrangement: At home Living Situation: With spouse/s.o. Support System: Patient lives with his anderson Judy who is quite active and in good health. 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 They do have 2 children, a son and a daughter. They have been doing outside visits, are looking forward to having their Covid shot #2 to be able to have them come visit with decreased distress. He likes to read, and watch TV, he is sleeping more, he is quite sedentary. He does get frustrated particularly his cognitive deficits. So far he has been able to manage most of his ADLs, though is concerned about decline in the future and her ability to care for him. Medications/Allergies - Medications Home Medications: Ambulatory Orders Medication Instructions Recorded Confirmed Losartan [Cozaar] 50 mg PO DAILY 01/13/13 09/21/20 Tamsulosin [Flomax] 0.4 mg PO BID 01/13/13 09/21/20 Albuterol Sulf [Ventolin Hfa 2 puffs IH BID PRN 09/01/16 09/21/20 Inhaler] Ascorbic Acid [Vitamin C] 500 mg PO DAILY 09/01/16 09/21/20 Carvedilol [Coreg] 25 mg PO BID 04/01/20 09/21/20 Cholecalciferol (Vitamin D3) 1,000 mg PO DAILY 04/01/20 09/21/20 [Vitamin D3] Famotidine 20 mg PO BID 04/01/20 09/21/20 Furosemide 20 mg PO DAILY 04/01/20 09/21/20 Loratadine [Claritin] 10 mg PO DAILY 04/01/20 09/21/20 Oxycodone HCl 5 mg PO Q4HR PRN 04/01/20 09/21/20 Rosuvastatin Calcium 10 mg PO DAILY 04/01/20 09/21/20 Senna [Senokot] 8.6 mg PO BID 04/01/20 09/21/20 polyethylene glycoL 3350 [Miralax] 8.6 mg PO DAILY PRN MDD titrate as 04/01/20 09/21/20 needed Cyanocobalamin (Vitamin B-12) 1,000 mcg PO DAILY 05/03/20 09/21/20 [Vitamin B-12 (1000 mcg sublingual)] oxyCODONE ER [OxyCONTIN] 10 mg PO BID 06/07/20 09/21/20 - Allergies Allergies/Adverse Reactions: Allergies Allergy/AdvReac Type Severity Reaction Status Date / Time lisinopril Allergy Severe Edema Verified 09/01/16 05:18 Sulfa (Sulfonamide Allergy Severe Respiratory Verified 09/01/16 05:18 Antibiotics) tramadol Allergy Intermediate Hives Verified 09/01/16 05:18 Review of Systems - Constitutional Constitutional: reports: Fatigue (worsening), Weight loss - Eyes Eyes: reports: Vision loss - Ears, Nose & Throat Ears, Nose & Throat: reports: Hearing loss, Hearing aids, Postnasal drainage. denies: Dental pain - Cardiovascular Cardiovascular: reports: Irregular heart rate, Edema, Exertional dyspnea, Decr. exercise tolerance. denies: Chest pain - Respiratory Respiratory: reports: Cough (intermittent coughing spasms; no increase from baseline), Sputum production (clear sputum), Wheezing (intermittent use inhaler not noted at visit), SOB with exertion. denies: SOB at rest - Gastrointestinal Gastrointestinal: reports: Constipation (had to use MOM 2 days ago, they had not added second Senna), Early satiety - Genitourinary Genitourinary: reports: Frequency - Musculoskeletal Musculoskeletal: reports: Muscle pain, Back pain, Muscle aches, Stiffness, Muscle weakness, Joint pain - Integumentary Integumentary: reports: Dryness - Neurological Neurological: reports: General weakness, Memory problems, Abnormal gait (slow related to bilateral knee/back pain DJD multiple joints) - Psychiatric Psychiatric: reports: Depression, Anxiety - Endocrine Endocrine: reports: Intolerance to cold - Hematologic/Lymphatic Hematologic/Lymph: Anemia (9.0) - All Other Systems All Other Systems: reports: Other (pateint with poor memory often defers to Pat for ROS) Physical Exam - Vital Signs Temperature: 96.5 C Pulse Rate: 61 Respiratory Rate: 18 O2 Saturation: 98 (ra @ rest) Blood Pressure: 108/64 - Physical Exam General Appearance: positive: No acute distress, Alert Eyes Bilateral: positive: Normal inspection ENT: positive: No signs of dehydration Neck: positive: Trachea midline Cardiovascular: positive: Regular rate & rhythm, Systolic murmur Respiratory: positive: No respiratory distress, Diminished in bases Abdomen: positive: Non-tender, Nml bowel sounds, Distended Skin: positive: Pallor, Dryness, Other (wart right hand) Neurologic/Psychiatric: positive: Disoriented to time, Weakness, Depressed mood /affect, Flat affect Palliative Care - POLST Patient has POLST: Yes POLST Status: DNR, Selective Treatment Pain: Pain unchanged, Pain improved, Location (see hPI) Constipation: Yes, Opoid induced, Intermittent constipation Performance Status: Patient with slow physical decline, increasing difficulty getting from sitting to standing, gait shuffled. Patient is quite sedentary. Currently is managing ADLs, with pacing self and occasional assistance. - Palliative Care Discussion: Patient was able to share a little bit more, about his feelings around and dying. Reports he is not afraid to . He feels like life just stops, and there is no more after that. He is very pragmatic today, and not at all avoiding topic. Allowed him to lead the conversation. continues to consider some of the concerns for the future, if patient were to decline much further physically if she would be able to manage him at home. She has been sharing more with her children, requested if son calls feel free to talk to him frankly about current situation and concerns for the future. Results - Lab Results Lab results reviewed: Yes Lab and Imaging Results: quite anxious about labs, did agree could draw, but suspect not many changes, will check thyroid secondary to feeling cold. Labs on return sodium 136, potassium 4.5, BUN 34, creatinine 2.4, GFR 26 without any change. He does have somewhat elevated AST at 67, ALT 64, alk phos at 327, total proteins of 6.1. WBCs at 8, hemoglobin 9.0, hematocrit 28.4 vitamin B12 is now elevated at 1231, T4 was 7.77 and TSH 1.59. Impression and Recommendations - Palliative Care Impression: This is a 84-year-old gentleman who presents with multiple comorbidities, does have some improvement in his symptom burden with improved pain, is eating better though has early satiety, continues with slow functional and cognitive decline. This is in the setting of advanced age and CKD stage IV, with improvement but fragile GFR of 26. Palliative care continue provide support regarding pain and symptom management, advanced care planning, anticipatory guidance as well as coordination of care. Recommendations/Counseling Done: 1. Chronic pain syndrome. This is multifactorial, patient is managing on long acting OxyContin 10 mg twice daily, at this point in time has not needed anything for breakthrough pain. Patient does have short-term memory issues, is unable to compare effectiveness but overall patient reports his comfort level is satisfactory. 2. Opioid-induced constipation. Patient is on senna twice daily, does intermittently forget MiraLAX and occasionally is using milk of mag. He reports constipation is better overall. 3. Hypertension. Patient is doing well on decreased furosemide, blood pressures in good range, patient is not symptomatic when he is hypotensive or hypertensive. 5. Fatigue. This is multifactorial. Patient is frequently up at night to void, suspect also related to his worsening kidney function, anemia, as well as sedentary/advanced age. Goal is to remain as functional independent as long as possible, concern if patient's functional status declines about being able to meet patient's care needs. 6. Advanced care planning. Patient does recognize his decline, he does not present with decision-making capacity other communicate he would not want to be resuscitated. has completed the POLST with DN AR/DNI I in the context of nuances. Counseling provided how to use the POLST, if has to call 911. She is starting to consider locations of patient's care and declined in the future. Given permission to speak to son, she is now including him in conversation about the future. POLST was collected, and will get to HI M Time Spent: 45 minutes with minute 50% of this time in counseling regarding symptom management, anticipatory guidance, labs were drawn and reported back to . Will coordinate with PCP for possible telehealth visit, as PCP office called for follow-up.
== END 2020-09-20 17:30 | disposition home or self-care (01) ==
LOC: PC 17:29
PROVIDERS: ATTEND Nurse Practitioner Adult Health
DX: Z51.5 Encounter for palliative care (principal); G89.4 Chronic pain syndrome; K59.03 Drug induced constipation; T40.2X5A Adverse effect of other opioids, initial encounter; I13.0 Hypertensive heart and chronic kidney disease with heart failure and stage 1 through stage 4 chronic kidney disease, or unspecified chronic kidney disease; I50.9 Heart failure, unspecified; N18.4 Chronic kidney disease, stage 4 (severe); R53.83 Other fatigue; F03.90 Unspecified dementia, unspecified severity, without behavioral disturbance, psychotic disturbance, mood disturbance, and anxiety; Z66 Do not resuscitate
CPT/HCPCS: 99349

== ENCOUNTER 2020-11-16 11:00 | Outpatient (CLI) | payer MEDICARE, BC, OTHER ==
--- NOTE | 2020-11-16 17:19 | CONSULTATION NOTE ---
Palliative Care Follow Up - Referral Referring Provider: Dr. Antoine poasdas PCP (Dr. Urrutia referred) Time of Visit: Referral setting: Home Referral Reason: Advanced CHF/CKD IV/Dementia - Information Sources Records reviewed: Previous records reviewed History/Review of Systems obtained from: Patient, Family ( Judy) Exam limitations: Clinical condition (patient with worsening dementia) - History of Present Illness Update Brief HPI Update: This is a feisty 84-year-old gentleman with multiple comorbidities, presenting with fluctuating but slow functional and cognitive decline, he had an episode last 2 weeks of severe stomach pain, lasting about 3 days, has since resolved. This was not related to heartburn, constipation, or any other contributing factors. T charissa he presents with continued worsening shortness of breath noted only with activity, though a lower extremity edema, weight loss, is sleeping more, and his labs continue to worsen. He does present with concern for hepatorenal syndrome, with elevated liver function tests today and poor kidney function. Patient denies any acute pain, has longstanding back pain managed on OxyContin 10 mg twice daily, he did need an extra oxycodone 5 mg for increased right hip pain, patient's perception of himself as he is at a plateau, but though certainly is limited. Patient's blood pressures have run a little lower in the day, from 96/57-120 3/ with a pulse between 51 and 61. He has noted increased swelling in his legs, worsening balance, and continues to be quite sedentary. He reports intermittent coughing spasms, and wheezing, though this fluctuates. Does not seem to respond to his inhaler. His has noted increased forgetfulness, he is deferring her quite frequently during the conversation and poor recall of ROS. He does get frustrated, she reports he is not reading as much, nor engaged in TV. Past Medical History: Hypertension, CHF, COPD, asthma, emphysema, tremors, GERD, BPH, nocturia, scoliosis, actinic keratosis, dementia, chronic back pain, chronic neck counseling from known cervical spondylosis with myelopathy at C4-C5, CKD stage IV Social History - Living Situation Living arrangement: At home Living Situation: With spouse/s.o. Support System: Patient lives with his Judy, who is quite active in good health. 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 They have 2 children a son and a daughter, daughter lives in [place]. They have been able to see her son recently, as they have been vaccinated. is concerned about pending decline, and managing. At this point he is able to manage most of his ADLs.They live in a two-story house,patient stays on upstairs level. Medications/Allergies - Medications Home Medications: Ambulatory Orders Medication Instructions Recorded Confirmed Losartan [Cozaar] 50 mg PO DAILY 01/13/13 11/16/20 Tamsulosin [Flomax] 0.4 mg PO BID 01/13/13 11/16/20 Albuterol Sulf [Ventolin Hfa 2 puffs IH BID PRN 09/01/16 11/16/20 Inhaler] Ascorbic Acid [Vitamin C] 500 mg PO DAILY 09/01/16 11/16/20 Carvedilol [Coreg] 25 mg PO BID 04/01/20 11/16/20 Cholecalciferol (Vitamin D3) 1,000 mg PO DAILY 04/01/20 11/16/20 [Vitamin D3] Famotidine 20 mg PO BID 04/01/20 11/16/20 Furosemide 20 mg PO DAILY 04/01/20 11/16/20 Loratadine [Claritin] 10 mg PO DAILY PRN 04/01/20 11/16/20 Oxycodone HCl 5 mg PO Q4HR PRN 04/01/20 11/16/20 Rosuvastatin Calcium 10 mg PO DAILY 04/01/20 11/16/20 Senna [Senokot] 8.6 mg PO BID 04/01/20 11/16/20 polyethylene glycoL 3350 [Miralax] 8.6 mg PO DAILY PRN MDD titrate as 04/01/20 11/16/20 needed Cyanocobalamin (Vitamin B-12) 1,000 mcg PO DAILY 05/03/20 11/16/20 [Vitamin B-12 (1000 mcg sublingual)] oxyCODONE ER [OxyCONTIN] 10 mg PO BID 06/07/20 11/16/20 Acetaminophen [Tylenol] 650 mg PO BID PRN 11/16/20 11/16/20 - Allergies Allergies/Adverse Reactions: Allergies Allergy/AdvReac Type Severity Reaction Status Date / Time lisinopril Allergy Severe Edema Verified 09/01/16 05:18 Sulfa (Sulfonamide Allergy Severe Respiratory Verified 09/01/16 05:18 Antibiotics) tramadol Allergy Intermediate Hives Verified 09/01/16 05:18 Review of Systems - Constitutional Constitutional: reports: Fatigue (worsening), Weight loss - Eyes Eyes: reports: Vision loss - Ears, Nose & Throat Ears, Nose & Throat: reports: Hearing loss, Hearing aids, Postnasal drainage. denies: Dental pain - Cardiovascular Cardiovascular: reports: Irregular heart rate, Edema (worsening), Exertional dyspnea, Decr. exercise tolerance - Respiratory Respiratory: reports: Cough (intermittent spasms), Sputum production (white/yellow), Wheezing, SOB with exertion (worsening; with short 10-15 min walker). denies: SOB at rest - Gastrointestinal Gastrointestinal: reports: Early satiety. denies: Constipation - Genitourinary Genitourinary: reports: Frequency, Nocturia - Musculoskeletal Musculoskeletal: reports: Muscle pain, Back pain, Muscle aches, Stiffness, Muscle weakness, Joint pain (c/o increase hip pain; right greater than left; shoulder pain right greater than left), Assistive devices (uses walker for ambulation) - Integumentary Integumentary: reports: Lesions (hx basal cell CA; has "spots" on right side of face), Dryness - Neurological Neurological: reports: General weakness, Numbness (c/o numbness and decreased fine motor movement in out 2 fingers right greater than left; patient with know cervical myelopathy), Memory problems (worsening), Abnormal gait (slow related to bilateral knee/back pain DJD multiple joints) - Psychiatric Psychiatric: reports: Depression, Anxiety, Aggitation (irritable at times) - Endocrine Endocrine: reports: Intolerance to cold - Hematologic/Lymphatic Hematologic/Lymph: reports: Anemia - All Other Systems All Other Systems: reports: Other (pateint with poor memory often defers to Pat for ROS) Physical Exam - Vital Signs Temperature: 97.7 C Pulse Rate: 51 Respiratory Rate: 18 O2 Saturation: 98 (ra @ rest) Blood Pressure: 122/60 - Physical Exam General Appearance: positive: Alert, Mild distress Eyes Bilateral: positive: Normal inspection ENT: positive: No signs of dehydration Neck: positive: Trachea midline, Stiff neck Cardiovascular: positive: Regular rate & rhythm, Systolic murmur Respiratory: positive: Diminished in bases. negative: No respiratory distress (respiratory distress with activity/movement), Wheezes Abdomen: positive: Non-tender, Nml bowel sounds, Distended Skin: positive: Pallor, Dryness, Other (dried scattered flat lesions about 4 on right side of face; not painful or itching) Extremities: positive: Pedal edema (doughy pedal/pitting edema up to mid calf) Neurologic/Psychiatric: positive: Disoriented to time, Weakness, Depressed mood/affect, Flat affect Palliative Care - POLST Patient has POLST: Yes POLST Status: DNR, Selective Treatment Pain: Pain worsening, Location (Patient's chronic back pain controlled; c/o hip and shoulder pain today; right over left side; worsens with weight bearing), Comment (on oxycontin 10 mg BID; occasional APAP, has used oxycodone 5 mg only once this month) Tiredness/Fatigue: Severe (7-10) Drowsiness/Sedation: Moderate (4-6) Nausea: None Anorexia: Moderate (4-6), Weight loss Dyspnea: Severe (7-10) Depression: Moderate (4-6) Anxiety: Moderate (4-6) Feelings of wellbeing/Perceived Quality of Life: Fair, Acceptable, No change (patient perceives no change), Worsening ( perceives patient declining) Sleep: Variable sleep pattern (up frequently to void) Constipation: Yes, Opoid induced, Intermittent constipation Performance Status: Patient is able to ambulate short distances with his walker, though does have increased pain and discomfort first thing in awakening. He does have some increased shortness of breath with activity, needing to pace himself. He is still managing his ADLs so with supervision. is noted patient has had increased sleeping, is more sedentary, and less engaged in his reading and TV watching - Palliative Care Discussion: Patient's perception is things are quite difficult, but he is at a "plateau". Does not perceive himself as declining, though does understand he is quite limited. Did speak with regarding worsening labs, concern regarding his liver enzymes. After much discussion have continued in a palliative intent and approach, no further work-up, at this point patient cannot tolerate increased diuretics, will keep things as is is patient is worsening but without any distress at this point in time. I did request that she start talking to her children, as patient is continuing to decline, she will need some help either for caregiving which she would prefer to do in the home, or for placement. She is starting to think about things as they continue to deteriorate, Did recommend she go to the Alzheimer's site, with the many many resources there. Also recommended she look at the 36-hour day, as well as final journeys for looking at end-of-life. She very much wants to be prepared, and does seem to be grasping that Nash is deteriorating more quickly than we had hoped. Results - Lab Results Lab results reviewed: Yes Lab and Imaging Results: Sodium 133, potassium 4.0, BUN 36, creatinine 2.7, GFR worsening at 23, glucose 125, total bili worsening 1.4 AST 98, ALT 89, alk phos 789, remains anemic at 9.2 GUCCI globin and 28.5 hematocrit, WBC at 8.8, Impression and Recommendations - Palliative Care Impression: This is a 84 year old gentleman with multiple core morbidities, unfortunately it appears to be developing hepatorenal syndrome, worsening heart failure, CKD stage IV with out improvement at GFR of 23. Patient has moderate symptom burden of dyspnea on exertion, early satiety, chronic pain r/t/ osteoarthritis, and functional and cognitive decline. Palliative care continue provide support and anticipatory guidance, with transition to hospice when appropriate. Recommendations/Counseling Done: 1. Acute on chronic heart failure. Patient does present with worsening lower extremity edema, dyspnea only on exertion, early satiety and fullness. Patient presents with worsening CKD labs, as well as most likely hepatic congestion, concern for developing hepatorenal syndrome. Discussed increasing diuretics, will hold off, as patient already somewhat hypotensive on current regimen, and at high risk for falls. will call if worsening symptoms or distress. Discussed with Pat further work-up regarding liver enzymes, at this point in time decision to focus on palliative intent, as would not choose to do anything differently at this point. 2. Chronic pain. Patient's pain currently controlled on OxyContin 10 mg twice daily, occasional use of acetaminophen for breakthrough pain. Patient does have some exacerbation of his hip and shoulder pain, though does not feel it warran ts increasing oxycodone. We will continue to monitor. 3. Constipation. Patient has intermittent constipation related to opioid use, they do titrate appropriately senna. 4. Generalized weakness. Patient currently at high risk for falls, continues to use a walker. Is able to get up and down, though is concerned about functional decline and being able to meet his care needs. Did recommend start conversation with his children, regarding possible need for in-home help or placement if continues to deteriorate. 5. Advanced care planning. Long discussion with regarding goals of care again, as patient does appear to be deteriorating. At this point in time wants to continue a palliative approach, with hope for no hospitalization or ED visits. Will call if patient becomes more symptomatic. Did staff patient with hospice certified medical records coder, if patient has further decline functionally, would consider accepting if goals of care line up. Will monitor and transition appropriately.. 45 minutes with greater than 50% of this done in counseling regarding goals of care, current symptom burden, and anticipatory guidance.
== END 2020-11-16 11:01 | disposition home or self-care (01) ==
LOC: PC 11:00
PROVIDERS: ATTEND Nurse Practitioner Adult Health
DX: Z51.5 Encounter for palliative care (principal); I50.9 Heart failure, unspecified; J43.9 Emphysema, unspecified; I13.0 Hypertensive heart and chronic kidney disease with heart failure and stage 1 through stage 4 chronic kidney disease, or unspecified chronic kidney disease; N18.4 Chronic kidney disease, stage 4 (severe); R06.09 Other forms of dyspnea; R68.81 Early satiety; R60.0 Localized edema; G89.29 Other chronic pain; K59.03 Drug induced constipation; T40.2X5A Adverse effect of other opioids, initial encounter; R53.1 Weakness; Z91.81 History of falling; Z66 Do not resuscitate
CPT/HCPCS: 99349

== ENCOUNTER 2020-11-16 11:45 | Outpatient (CLI) | payer MEDICARE, BC, OTHER ==
[2020-11-16 12:41] LABS: BASOPHILS # (AUTO) 0.1 10^3/uL (0.0-0.1); BASOPHILS % (AUTO) 0.8 %; EOSINOPHILS # (AUTO) 0.2 10^3/uL (0.0-0.7); EOSINOPHILS % (AUTO) 2.1 %; HCT - HEMATOCRIT 28.5 % (42.0-52.0); HGB - HEMOGLOBIN 9.2 g/dL (14.0-18.0); LYMPHOCYTES # (AUTO) 0.6 10^3/uL (1.5-3.5); LYMPHOCYTES % (AUTO) 6.4 %; MEAN CORPUSCULAR HEMOGLOBIN 31.8 pg (27.0-31.0); MEAN CORPUSCULAR HGB CONC 32.3 g/dL (32.0-36.0); MEAN CORPUSCULAR VOLUME 98.6 fL (80.0-94.0); MEAN PLATELET VOLUME 11.1 fL (7.4-11.4); MONOCYTES # (AUTO) 1.2 10^3/uL (0.0-1.0); MONOCYTES % (AUTO) 13.5 %; NEUTROPHILS # (AUTO) 6.7 10^3/uL (1.5-6.6); NEUTROPHILS % (AUTO) 76.7 %; PLT - PLATELET COUNT 195 10^3/uL (130-450); RED BLOOD COUNT 2.89 10^6/uL (4.70-6.10); RED CELL DISTRIBUTION WIDTH 14.5 % (12.0-15.0); WHITE BLOOD COUNT 8.8 x10^3/uL (4.8-10.8)
[2020-11-16 12:50] LABS: ALBUMIN 3.3 g/dL (3.2-5.5); ALBUMIN/GLOBULIN RATIO 1.2 (1.0-2.2); BILIRUBIN,TOTAL 1.4 mg/dL (0.2-1.0); CREATININE 2.7 mg/dL (0.6-1.2); TOTAL PROTEIN 6.1 g/dL (6.7-8.2)
== END 2020-11-16 23:59 | disposition home or self-care (01) ==
LOC: LAB.R 11:45
PROVIDERS: ATTEND Nurse Practitioner Adult Health
DX: D63.1 Anemia in chronic kidney disease (principal); Z79.899 Other long term (current) drug therapy
CPT/HCPCS: 36415; 80053; 85025

== ENCOUNTER 2021-01-04 | Outpatient (CLI) | payer MEDICARE, BC, OTHER ==
--- NOTE | 2021-01-04 18:25 | CONSULTATION NOTE ---
Palliative Care Follow Up - Referral Referring Provider: Dr. Tony Schultz Time of Visit: 5752-2022 Referral setting: Home Referral Reason: CKD Stage V/CHF/Fatigue - Information Sources Records reviewed: Previous records reviewed History/Review of Systems obtained from: Patient, Family ( Judy) Exam limitations: Clinical condition (patient with worsening cognitive status/STM issues) - History of Present Illness Update Brief HPI Update: This is a feisty 85-year-old gentleman with multiple comorbidities, continuing to have both functional and cognitive decline. He has had intermittent stomach pain, with no identified underlying etiology, is unable to describe nature or timing of it. Patient though has lost quite a bit of weight over the last couple months, he was at 172 now down to 158. He reports early satiety, is taking in less portions, but is unable to really identify any specific symptoms that has impacted his intake other than anorexia. Patient reports increased tiredness and fatigue, no energy, is noted patient is sleeping much more, is much more short of breath and with decreased activity tolerance with any kind of ambulation. He used to be able walk from the table into his bathroom, now needs to stop some recovery time. He does have some increased cough and wheezing, though he is not demonstrating this today. He has some lower extremity edema fairly persistent but not significantly worse either. He does appear quite pale, is deferring to his more frequently with his dementia and recall. She is concerned as she does see he is losing ground particular over the last few weeks. Patient is reporting increased dizziness, patient has had hypotension, today's blood pressure is 112/64, but has consistently been less than 100, reports he is starting to have some dizziness with this which is new. Denies chest pain specifically with any of his symptoms, is able to lay flat, but describes himself "as exhausted". Past Medical History: Hypertension, CHF, COPD, asthma, emphysema, tremors, GERD, BPH, nocturia, scoliosis, actinic keratosis, dementia, chronic back pain, chronic neck pain known cervical spondylosis with myelopathy at C4-C5, CKD stage IV Social History - Living Situation Living arrangement: At home Living Situation: With spouse/s.o. Support System: Patient lives with his anderson Judy, who is his full-time caregiver. 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 They have a two-story home, they have gotten a transport wheelchair. They are hoping to attend their grandsons high school graduation.They have a son and his family come visit frequently, he also has a daughter, but relationship is somewhat strained Medications/Allergies - Medications Home Medications: Ambulatory Orders Medication Instructions Recorded Confirmed Losartan [Cozaar] 50 mg PO DAILY 01/13/13 11/16/20 Tamsulosin [Flomax] 0.4 mg PO BID 01/13/13 11/16/20 Albuterol Sulf [Ventolin Hfa 2 puffs IH BID PRN 09/01/16 11/16/20 Inhaler] Ascorbic Acid [Vitamin C] 500 mg PO DAILY 09/01/16 11/16/20 Carvedilol [Coreg] 25 mg PO BID 04/01/20 11/16/20 Cholecalciferol (Vitamin D3) 1,000 mg PO DAILY 04/01/20 11/16/20 [Vitamin D3] Famotidine 20 mg PO BID 04/01/20 11/16/20 Furosemide 20 mg PO DAILY 04/01/20 11/16/20 Loratadine [Claritin] 10 mg PO DAILY PRN 04/01/20 11/16/20 Oxycodone HCl 5 mg PO Q4HR PRN 04/01/20 11/16/20 Rosuvastatin Calcium 10 mg PO DAILY 04/01/20 11/16/20 Senna [Senokot] 8.6 mg PO BID 04/01/20 11/16/20 polyethylene glycoL 3350 [Miralax] 8.6 mg PO DAILY PRN MDD titrate as 04/01/20 11/16/20 needed Cyanocobalamin (Vitamin B-12) 1,000 mcg PO DAILY 05/03/20 11/16/20 [Vitamin B-12 (1000 mcg sublingual)] oxyCODONE ER [OxyCONTIN] 10 mg PO BID 06/07/20 11/16/20 Acetaminophen [Tylenol] 650 mg PO BID PRN 11/16/20 11/16/20 - Allergies Allergies/Adverse Reactions: Allergies Allergy/AdvReac Type Severity Reaction Status Date / Time lisinopril Allergy Severe Edema Verified 09/01/16 05:18 Sulfa (Sulfonamide Allergy Severe Respiratory Verified 09/01/16 05:18 Antibiotics) tramadol Allergy Intermediate Hives Verified 09/01/16 05:18 Review of Systems - Constitutional Constitutional: reports: Fatigue (worsening; feeling more tired; sleeping more), Weakness, Weight loss (158 from 172 in October) - Eyes Eyes: reports: Vision loss - Ears, Nose & Throat Ears, Nose & Throat: reports: Hearing loss, Hearing aids, Postnasal drainage. denies: Dental pain - Cardiovascular Cardiovascular: reports: Irregular heart rate, Edema (worsening), Exertional dyspnea, Decr. exercise tolerance - Respiratory Respiratory: reports: Cough (intermittent spasms; feels worsening), Sputum production (white/yellow), Wheezing, SOB with exertion (worsening; with short 10-15 min walker). denies: SOB at rest - Gastrointestinal Gastrointestinal: reports: Abdominal pain (intermittent; ;unable to describe when/and nature), Constipation, Poor appetite, Early satiety. denies: Black stools, Reflux/heartburn - Genitourinary Genitourinary: reports: Frequency - Musculoskeletal Musculoskeletal: reports: Muscle pain, Back pain, Muscle aches, Stiffness, Muscle weakness, Joint pain - Integumentary Integumentary: reports: Dryness - Neurological Neurological: reports: General weakness, Memory problems, Abnormal gait - Psychiatric Psychiatric: reports: Depression, Anxiety, Delusions (has had a few episodes of confusion) - Endocrine Endocrine: reports: Intolerance to cold - Hematologic/Lymphatic Hematologic/Lymph: reports: Anemia. denies: Recurrent infections - All Other Systems All Other Systems: reports: Other (pateint with poor memory often defers to Pat for ROS) Physical Exam - Vital Signs Temperature: 97.0 C Pulse Rate: 54 Respiratory Rate: 18 O2 Saturation: 99 (ra @ rest) Blood Pressure: 112/64 - Physical Exam General Appearance: positive: No acute distress, Alert, Other (appears thinner) Eyes Bilateral: positive: Normal inspection ENT: positive: No signs of dehydration Neck: positive: Trachea midline Cardiovascular: positive: Regular rate & rhythm Respiratory: positive: No respiratory distress, Diminished in bases. negative: Wheezes, Rales, Rhonchi Abdomen: positive: Non-tender, Soft Skin: positive: Pallor, Dryness Extremities: positive: Pedal edema (up to mid calf;) Neurologic/Psychiatric: positive: Disoriented to time, Weakness, Depressed mood/affect, Flat affect Palliative Care - POLST Patient has POLST: Yes POLST Status: DNR, Selective Treatment Pain: Pain worsening, Location (Patient has chronic neck and shoulder and low back pain, currently controlled on his OxyContin) Tiredness/Fatigue: Severe (7-10) Drowsiness/Sedation: Moderate (4-6) Nausea: None Anorexia: Moderate (4-6), Weight loss Dyspnea: Severe (7-10) (with activity; not at rest) Depression: Moderate (4-6) Anxiety: Mild (1-3) Feelings of wellbeing/Perceived Quality of Life: Fair, Worsening Sleep: Variable sleep pattern Constipation: No, Intermittent constipation Performance Status: Johnie is concerned to the point in time patient needs more hands-on care how she is going to manage, but at this point in time feels like they are doing okay. She is starting to think about his impending decline and what might be of help particularly care in the home.ent's functional status continues to decline, is still ambulatory with a walker. I did discuss bathing, does take him about 90 minutes, with significant respiratory effort and distress. Did evaluate shower, has built-in seat, most likely would benefit more from as seat with side arms, is not interested in taking it out. We did discuss at minimum to do a hand-held shower. Also discussed just bathing 1 time a week and using bathing cloths and rinseless shampoo for the other time. - Palliative Care Discussion: Patient does describe himself "is exhausted", and somewhat surprised he has made another birthday, but does not feel like he is imminently declining. He does understand he is limited, but does have insight into the seriousness of his illness. His is quite concerned, we did discuss after his lab results, with his GFR of 11, does put him into CKD 5, does not believe that pursuing question or further work-up either regarding her stomach pain or if he would consider dialysis would not be consistent with the goals of care. We did discuss transition to hospice, she feels currently they are managing given just his dementia and creakiness, feels like this would be more stressful than of help to him. She will let me know if he starts to transition or she needs more assistance. Results - Lab Results Lab results reviewed: Yes Lab and Imaging Results: labs drawn at visit; Sodium 134, potassium 3.9, BUN 56, creatinine up to 5.1, GFR down to 11, calcium 8.0, total bili up to 1.7, AST 49, alk phos 1197 hemoglobin 9.0, hematocrit 27.5 WBCs 8.1 Impression and Recommendations - Palliative Care Impression: This is an 85-year-old gentleman with multiple comorbidities, developing worsening heart failure, now progressed to CKD disease stage V with GFR of 11, weight loss, worsening fatigue, and unknown etiology for stomach pain. Patient's symptom burden is increasing, and continues with functional and cognitive decline. Palliative care continue provide support and anticipatory guidance with transition to hospice when appropriate Recommendations/Counseling Done: 1. Acute on chronic heart failure. Patient's lower extremity edema appears symptomatic, but stable, worsening dyspnea on exertion, early satiety and fullness. Patient presents with worsening CKD on labs, hepatic congestion, and now is somewhat symptomatic with his hypotension. Call into christian counselor to see about adjusting medications. 2. Chronic pain. Patient's chronic neck and back pain currently controlled on OxyContin 10 mg twice daily, with occasional use of acetaminophen for breakthrou gh pain. We will continue to monitor. 3. Generalized weakness. Patient currently at high risk for falls, continues to walker. He is continue with functional decline, is appropriately concer shelbi we will meet his ongoing care needs. Reviewed bathroom set up, with recommendations. 4. CKD stage V. Patient's current GFR at 11, reviewed with hospice medical transport specialist, patient does have multiple comorbidities that would support transition to hospice, would like to hold off currently. Patient does present with failure to thrive with increased weight loss, functional and cognitive decline, comorbidities of CHF, COPD, as well as worsening CKD. 5. Advanced care planning. Long discussion with again regarding goals of care, patient continues to appear to be deteriorating. They continue in concordance with his previously stated wishes want to take a palliative care approach, discussed at what point would transition to hospice, feels at this point in time would like to hold off given patient's poor insight into the seriousness of his illness and anxiety and irritability related both to personality and his worsening dementia. We will monitor and transition appropr iately. Unable to touch base with cardiology, did staff patient with hospice medical transport specialist. Patient would meet criteria. Call to , will have her increase his furosemide to 40 mg in the a.m. x3 days, and to weigh daily. Did discuss at length my recommendation to transition to hospice, for support particularly given their goals, she is going to speak to her children and will let me know on Friday their decision
== END 2021-01-04 12:16 | disposition home or self-care (01) ==
CPT/HCPCS: 99349

== ENCOUNTER 2021-01-04 13:32 | Outpatient (CLI) | payer MEDICARE, BC, OTHER ==
[2021-01-04 13:39] LABS: BASOPHILS # (AUTO) 0.1 10^3/uL (0.0-0.1); BASOPHILS % (AUTO) 0.6 %; EOSINOPHILS # (AUTO) 0.4 10^3/uL (0.0-0.7); HCT - HEMATOCRIT 27.5 % (42.0-52.0); LYMPHOCYTES # (AUTO) 0.7 10^3/uL (1.5-3.5); LYMPHOCYTES % (AUTO) 8.5 %; MEAN CORPUSCULAR HEMOGLOBIN 31.5 pg (27.0-31.0); MEAN CORPUSCULAR HGB CONC 32.7 g/dL (32.0-36.0); MEAN CORPUSCULAR VOLUME 96.2 fL (80.0-94.0); MEAN PLATELET VOLUME 11.1 fL (7.4-11.4); MONOCYTES # (AUTO) 1.1 10^3/uL (0.0-1.0); MONOCYTES % (AUTO) 13.8 %; NEUTROPHILS # (AUTO) 5.8 10^3/uL (1.5-6.6); NEUTROPHILS % (AUTO) 71.6 %; PLT - PLATELET COUNT 213 10^3/uL (130-450); RED BLOOD COUNT 2.86 10^6/uL (4.70-6.10); RED CELL DISTRIBUTION WIDTH 15.1 % (12.0-15.0); WHITE BLOOD COUNT 8.1 x10^3/uL (4.8-10.8)
[2021-01-04 14:03] LABS: ALBUMIN 2.8 g/dL (3.2-5.5); ALBUMIN/GLOBULIN RATIO 0.9 (1.0-2.2); BILIRUBIN,TOTAL 1.7 mg/dL (0.2-1.0); CREATININE 5.1 mg/dL (0.6-1.2); POTASSIUM 3.9 mmol/L (3.5-5.0); TOTAL PROTEIN 5.9 g/dL (6.7-8.2)
== END 2021-01-04 13:33 | disposition home or self-care (01) ==
LOC: LAB.R 13:32
PROVIDERS: ATTEND Nurse Practitioner Adult Health
DX: Z79.899 Other long term (current) drug therapy (principal); D63.1 Anemia in chronic kidney disease
CPT/HCPCS: 80053; 85025

== ENCOUNTER 2021-01-08 | Outpatient (CLI) | payer MEDICARE, BC, OTHER ==
--- NOTE | 2021-01-08 17:23 | CONSULTATION NOTE ---
Palliative Care Follow Up - Referral Referring Provider: Dr. Tony Schultz Time of Visit: [id number] Referral setting: Home Referral Reason: CKD V/CHF/FTT - Information Sources Records reviewed: Previous records reviewed History/Review of Systems obtained from: Patient, Family ( Judy) Exam limitations: Clinical condition (patient with cognitive status STM issues) - History of Present Illness Update Brief HPI Update: This is a feisty 85-year-old gentleman with multiple comorbidities, with ongoing functional and cognitive decline, and worsening kidney status. Labs drawn on 01/04/2021 show a GFR down to 11 from 26, creatinine up to 5.1, total bili 1.7, and worsening alk phos 1197, hemoglobin 9.0, hematocrit 27.5. Patient has had significant weight loss over the last couple months, up from 172 down to 158, reporting early satiety, and intermittent stomach pain with no underlying etiology and unable to describe nature or timing of it. Patient has been having increased tiredness and fatigue, sleeping much more, having good days and bad days fluctuating. Patient had increased lower extremity edema and breathlessness, I did increase furosemide to 40 mg x 3 days with only mild improvement. He does have expiratory wheezing, no crackles, continues with lower extremity edema that is persistent. He is quite sallow in color today, has cognitive deficit and defers often to his . It was noted on our visit last Friday, he has been losing ground, he was having increased dizziness, poor activity tolerance, and continues with persistent hypotension. His blood pressures run from 88/50 with a pulse of 59, though today after conversation it was up to 118/68. Patient denies chest pain, but describes himself is exhausted. I am here to talk to him today, regarding his worsening kidney status, and consistent with his goals transitioning to hospice. Past Medical History: Hypertension, CHF, COPD, asthma, emphysema, tremors, GERD, BPH, nocturia, scoliosis, actinic Keratosis, dementia, chronic back pain, chronic neck pain with known cervical spondylosis with myelopathy at C4-C5, CKD stage V. Social History - Living Situation Living arrangement: At home Living Situation: With spouse/s.o. Support System: Patient lives with his anderson Judy, she is worried about his increasing care needs. 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 They have a two-story home, but continues to live on the first floor. They did get out for Covid shots, otherwise had been homebound. They were hoping to attend her grandson's high school graduation which is at the end of January. He has a son and his family who live close, he also has a daughter in [place] but the relationship is somewhat strained, she is coming to visit this weekend Medications/Allergies - Medications Home Medications: Ambulatory Orders Medication Instructions Recorded Confirmed Losartan [Cozaar] 50 mg PO DAILY 01/13/13 11/16/20 Tamsulosin [Flomax] 0.4 mg PO BID 01/13/13 11/16/20 Albuterol Sulf [Ventolin Hfa 2 puffs IH BID PRN 09/01/16 11/16/20 Inhaler] Ascorbic Acid [Vitamin C] 500 mg PO DAILY 09/01/16 11/16/20 Carvedilol [Coreg] 25 mg PO BID 04/01/20 11/16/20 Cholecalciferol (Vitamin D3) 1,000 mg PO DAILY 04/01/20 11/16/20 [Vitamin D3] Famotidine 20 mg PO BID 04/01/20 11/16/20 Furosemide 20 mg PO DAILY 04/01/20 11/16/20 Loratadine [Claritin] 10 mg PO DAILY PRN 04/01/20 11/16/20 Oxycodone HCl 5 mg PO Q4HR PRN 04/01/20 11/16/20 Rosuvastatin Calcium 10 mg PO DAILY 04/01/20 11/16/20 Senna [Senokot] 8.6 mg PO BID 04/01/20 11/16/20 polyethylene glycoL 3350 [Miralax] 8.6 mg PO DAILY PRN MDD titrate as 04/01/20 11/16/20 needed Cyanocobalamin (Vitamin B-12) 1,000 mcg PO DAILY 05/03/20 11/16/20 [Vitamin B-12 (1000 mcg sublingual)] oxyCODONE ER [OxyCONTIN] 10 mg PO BID 06/07/20 11/16/20 Acetaminophen [Tylenol] 650 mg PO BID PRN 11/16/20 11/16/20 - Allergies Allergies/Adverse Reactions: Allergies Allergy/AdvReac Type Severity Reaction Status Date / Time lisinopril Allergy Severe Edema Verified 09/01/16 05:18 Sulfa (Sulfonamide Allergy Severe Respiratory Verified 09/01/16 05:18 Antibiotics) tramadol Allergy Intermediate Hives Verified 09/01/16 05:18 Review of Systems - Constitutional Constitutional: reports: Fatigue, Weight loss - Eyes Eyes: reports: Vision loss - Ears, Nose & Throat Ears, Nose & Throat: reports: Hearing loss, Hearing aids, Postnasal drainage. denies: Dental pain - Cardiovascular Cardiovascular: reports: Irregular heart rate, Edema (worsening), Exertional dyspnea, Decr. exercise tolerance - Respiratory Respiratory: reports: Cough (intermittent spasms; feels worsening), Sputum production (white/yellow), Wheezing, SOB with exertion (worsening; with short 10-15 min walker). denies: SOB at rest - Gastrointestinal Gastrointestinal: reports: Constipation, Early satiety - Genitourinary Genitourinary: reports: Frequency - Musculoskeletal Musculoskeletal: reports: Muscle pain, Back pain, Muscle aches, Stiffness, Muscle weakness, Joint pain, Assistive devices (uses walker for ambulation/transfers) - Integumentary Integumentary: reports: Dryness, Nail changes - Neurological Neurological: reports: General weakness, Memory problems, Abnormal gait - Psychiatric Psychiatric: reports: Depression, Anxiety - Endocrine Endocrine: reports: Intolerance to cold - Hematologic/Lymphatic Hematologic/Lymph: reports: Anemia. denies: Recurrent infections - All Other Systems All Other Systems: reports: Other (pateint with poor memory often defers to Pat for ROS) Physical Exam - Vital Signs Temperature: 97.3 C Pulse Rate: 54 Respiratory Rate: 18 O2 Saturation: 99 (ra @rest) Blood Pressure: 118/68 - Physical Exam General Appearance: positive: Alert, Mild distress (with conversation) Eyes Bilateral: positive: Normal inspection ENT: positive: No signs of dehydration Neck: positive: Trachea midline Cardiovascular: positive: Regular rate & rhythm, Systolic murmur Respiratory: positive: Chest non-tender, Wheezes (expiratory in lower lobes) Abdomen: positive: Non-tender, Nml bowel sounds, Distended Skin: positive: Pallor, Dryness, Other (sallow in color) Extremities: positive: Pedal edema (mild improvement; but still 2+ up to mid calf) Neurologic/Psychiatric: positive: Mood/affect nml, Disoriented to time, Weakness, Flat affect Palliative Care - POLST Patient has POLST: Yes POLST Status: DNR, Selective Treatment Pain: Pain worsening, Location (lower back pain; worse with standing; more persi stent; using some APAP;), Comment (on oxycontin 10 mg BID) Tiredness/Fatigue: Severe (7-10) Drowsiness/Sedation: Moderate (4-6) Nausea: Mild (1-3) Anorexia: Moderate (4-6), Weight loss Dyspnea: Moderate (4-6) Depression: Moderate (4-6) Anxiety: Moderate (4-6) Feelings of wellbeing/Perceived Quality of Life: Poor, Worsening Sleep: Variable sleep pattern (related to nocturia) Constipation: Yes, Opoid induced, Intermittent constipation Performance Status: Patient is having increased lower back pain, from sitting to standing, reports no relief with laying down. He does ambulate short distances with a walker, limited by dyspnea as well as pain. He is having increased trouble with tolerating shower, both due to again activity intolerance, shortness of breath, and pain. He does have lower extremity weakness. - Palliative Care Discussion: Had spoken with last Friday, she is going to speak to her kids over the weekend. She did recognize his patient had a difficult weekend with more sleeping, and had actually admitted to her yesterday given his declining that he thought he was "dying". In the context of this we agreed I would make a visit today to talk to him about transition to hospice, she feels like this would be really helpful as far as support. I did introduce to the patient my concern, the fact that his kidney function was worsening, but he had been having both functional and some cognitive decline. That he was not doing well overall that I felt like it was looking like things were going poorly and would recommend transition to hospice. Did discuss I did not think he was imminently transitioning, but most likely months, possibly weeks given his rapid decline over the last 6 weeks. We did discuss given his kidney function, and his goals, which is not to return to the hospital, he is 85 with multiple comorbidities would be a poor candidate for dialysis, and most likely would have better quality of life focusing on comfort measures and increased support at home. This is a fairly lengthy conversation, but in the end, goals were consistent with being at home, spending time with family, and considering increased support with hospice. He did defer the hospice question to his . Patient though conversant, and has understanding the seriousness of his illness, most likely would not be able to participate in the consent for the hospice benefit. He is easily befuddled and overwhelmed, and gets quite frustrated if he does not understand. I did give him the overview as far as what hospice would look like, with visiting nurse, the physician, further support through the rest of the team for a home health aide at this point for nail care. We did discuss medications would be delivered to them, including as needs equipment we could add those. I did speak with outside, will follow up with hospice team, would recommend introducing themselves, hospice, and evaluation, but introduce all the nuances and informed consent components with the . Counseling was provided to both regarding hospice and both the limitations but also the benefits of what can be provided. I did follow-up with their son Nash Mcdaniel, per request. We did discuss the seriousness of his illness, his ongoing decline, and support that he could provide to his mother and father. They had been hoping he was going to be well enough to attend a graduation end of January, we did discuss we would need to weigh where he is at given his current decline. I did provide anticipatory guidance both her and son regarding patient's disease process, expected continued slow decline, but certainly could have "an event" and thus the need to have an extra layer support and light armored reconnaissance officer of hospice and direction. Impression and Recommendations - Palliative Care Impression: This is an 85-year-old gentleman with multiple comorbidities, with worsening heart failure, progressive CKD now stage IV, with GFR of 11, weight loss, worsening fatigue, and increased symptom burden. He also presents with worsening functional and cognitive status. Palliative care meeting with and patient, to discuss transitioning to hospice. Recommendations/Counseling Done: 1. Acute on chronic heart failure. Patient did have only a slight response to increase furosemide, with persistent low blood pressure. Given his worsening CKD, will leave furosemide at 20 mg and would recommend increasing furosemide intermittently in response to discomfort only. Still awaiting callback from cardiology for any other recommendations for adjusting medications. 2. CKD stage IV. Patient's current GFR 11, patient does have multiple comorbidities, hospice medical claims specialist willing to accept patient as he does present with failure to thrive with increased weight loss, functional and cognitive decline, comorbidities of CHF, COPD, as well as is worsening CKD. Patient's most persistent symptoms regarding his CKD is his fatigue, though he does attribute some increased back pain. 3. Chronic back pain. Patient is having exacerbation of his lower back pain, is using intermittent acetaminophen does have oxycodone available. Patient has had allergy to morphine with significant increase in confusion. Has tolerated oxycodone. The patient's pain and exacerbating are increasing, may benefit with close evaluation transition to methadone. He has done well on OxyContin though. 4. Generalized weakness. Patient remains at high risk for falls, continues to use a walker. He would benefit from increased support from patient needing assistance, may want to introduce with nail care as this is interest. For home health aide. 5. Advanced care planning. Patient does have POLST with DNR/DNI and selective treatments, did not update POLST as patient has difficulty grasping concepts, w linwood did sign it, but has been consistent with patient's express goals. Long conversation today regarding patient's goals of care, with worsening status, does not want to be hospitalized, wants to focus on comfort spending time with family and is in agreement for hospice. would appreciate and benefit from support of hospice team. Counseling provided regarding the continuum of care and the hospice benefit. Referral to hospice made, update to Dr. Coulter, patient currently without relationship with Dr. Schultz as had transition from other primary care. Will notify through documentation. 60 minutes with greater 50% of this done in counseling regarding goals of care, family meeting regarding transition to hospice, coordination of care with hospice team.
== END 2021-01-08 13:46 | disposition home or self-care (01) ==
CPT/HCPCS: 99350